=== PATIENT | male | born 1975 | race Caucasian/White ===

== ENCOUNTER 2021-07-01 19:35 | Emergency (ER) | payer SELFPAY ==
[2021-07-01 19:39] VITALS: BP 154/101; PULSE 92; RESP 16; TEMP 36.8; O2SAT 97
--- NOTE | 2021-07-01 20:24 | PC.NURSE ---
Pt to desk w/ . Pt stating he wants to go home at this time. Pt A&Ox4 with steady gait in no acute distress. Pt encouraged to return if his symptoms worsen or new symptoms develop.
== END 2021-07-01 20:47 | disposition left against medical advice (07) ==
LOC: ANHED 20:44
DX: R20.0 Anesthesia of skin (principal)
CPT/HCPCS: 99199

== ENCOUNTER 2024-06-22 15:01 | Inpatient (IN) | payer SELFPAY ==
[2024-06-22] VITALS (10 sets, daily range): BP systolic 119–152; BP diastolic 74–90; PULSE 92–98; RESP 16–25; TEMP 36.8–37.1; O2SAT 94–98; BMI 26.9
--- NOTE | 2024-06-22 15:07 | ECG_ITS ---
Test Date: 2024-06-22 15:07:39 Measurements Intervals [place] Rate: 99 P: 66 HI: 131 QRS: 67 QRSD: 90 T: 59 QT: 371 QTc: 478 Interpretive Statements SINUS RHYTHM DELAYED PRECORDIAL R/S TRANSITION NONSPECIFIC ST & T-WAVE ABNORMALITY- INF/LAT LEADS BASELINE ARTIFACT- I, II, III, AVR, AVL A,VF, V1-V6 BORDERLINE ECG No previous ECG available for comparison Electronically Signed On 06-22-2024 15:55:15 CDT by Salvador Hook D.O.
--- NOTE | 2024-06-22 15:21 | PC.NURSE ---
Ashish RN, at [place] poison control contacted d/t patient's intentional OD at approx 1400. Per the patient, he ingested the following: -Hydroxyzine 50mg x 60 -Trazodone 100mg x 90 -Fluoxetine 40mg x 180 -Diphenhydramine 50mg x 100 She provided the following information: Peak: -Hydroxyzine 1-3 hours -Trazodone 1-2 hours (potentially 8 hours active metabolization) -Fluoxetine 6-8 hours (potentially 48 hours active metabolization) -Diphenhydramine >6-8 hours What to watch for: -TICKET SELLER depression -drowsiness -anticholinergic affects -slow GI motility -dry mouth -N/V -prolonged QT Also suggested to do tox screen and check for possible co-ingestants. Poison control RN provided with patient demographics and full set of VS. RN to fax data sheets over and call back for an update.
[2024-06-22 15:23] LABS: Basophils Absolute Auto 0.1 K/mm3 (0.0-0.1); Basophils Percent Auto 0.3 % (0.2-1.2); Eosinophils Percent Auto 0.1 % (0-4.4); Hematocrit 39.9 % (42.0-52.0); Hemoglobin 13.4 g/dL (14.0-18.0); Immature Granulocyte Absolute 0.12 K/mm3 (0.00-0.031); Immature Granulocyte Percent A 0.7 % (0-0.5); Lymphocytes Absolute Auto 2.11 K/mm3 (0.9-3.2); Lymphocytes Percent Auto 12.2 % (18.3-44.2); Mean Corpuscular HGB Conc 33.6 g/dl (32-36); Mean Corpuscular Hemoglobin 27.9 pg (26-34); Mean Platelet Volume 8.4 fl (7.4-10.4); Monocytes Absolute Auto 1.2 K/mm3 (0.1-0.6); Monocytes Percent Auto 7.1 % (2.6-8.5); Neutrophils Absolute Auto 13.8 K/mm3 (1.3-6.7); Neutrophils Percent Auto 79.6 % (45.5-73.1); Platelet Count Result 350 k/mm3 (150-375); Red Blood Count 4.81 M/mm3 (4.6-6.20); Red Cell Distribution Width 16.3 % (11.5-14.5); White Blood Count 17.3 K/mm3 (4.5-10.0)
--- NOTE | 2024-06-22 15:23 | ED_ITS ---
HPI - Overdose General Chief Complaint: Overdose Stated Complaint: intentional OD Time Seen by Provider: 06/22/24 15:01 History of Present Illness HPI Narrative: 48-year-old male with a past medical history including chronic depression and suicidal ideation. Patient presents to the emergency room today after a overdose of multiple medications. Patient states this was an intentional overdose and tried to harm himself. He states that he feels like it was unsuccessful and wants to kill himself with a gun now. Endorses drinking vodka yesterday and ingested multiple bottles of medications that he stay were mostly full including trazodone, fluoxetine, hydroxyzine and Benadryl. Ingestion occurred approximately 2:00 p.m. based on patient's story. Endorsed 1 episode of small emesis and round with EMS. Patient is somnolent but easily arousable in the bedside. Denies any symptoms at this time aside from feeling sleepy. States that he has had chronic suicidal thoughts but no attempts before. Related Data Home Medications ?Medication ?Instructions ?Recorded ?Confirmed ?Last Taken ?Type fluoxetine 40 mg capsule 40 mg PO QPM 06/22/24 06/22/24 Unknown History hydroxyzine pamoate 50 mg capsule 50 mg PO Q6H PRN agitation 06/22/24 06/22/24 Unknown History lisinopril 10 mg tablet 10 mg PO DAILY 06/22/24 06/22/24 Unknown History quetiapine 100 mg tablet 200 mg PO HS 06/22/24 06/22/24 Unknown History Allergies Allergy/AdvReac Type Severity Reaction Status Date / Time No Known Allergies Allergy Verified 07/01/21 19:43 Review of Systems 2 Review of Systems: Is reviewed above in HPI [facility] Past Medical History Medical History (Updated 06/22/24 @ 21:57 by Gerald Mccauley MD) GERD (gastroesophageal reflux disease) Suicide attempt 06/22/2024 - ingestion of prescription pills and [id number] medication Bipolar disorder HTN (hypertension) Surgical History Surgical History (Updated 06/22/24 @ 20:28 by Katelyn Pratt, RICK) History of ankle surgery Family History Family History (Updated 06/22/24 @ 19:28 by Fabien Sanchez RN) Other Unknown family medical history Social History Social History Smoking packs per day: 1 Smoking cigarettes per day: 20.0 Years smoked: 20 Smoking pack-years: 20.00 Smoking status: Current every day smoker Alcohol intake: current Substance use type: marijuana and prescription drug Spiritual care concerns: No Exam 2 Narrative: GENERAL: Somnolent but easily arousable with verbal and physical stimuli. HEAD: [Normocephalic, atraumatic.] EYES: [PERRLA and EOMI.] ENT: Nares clear, no rhinorrhea or epistaxis. Mucous membranes moist. NECK: Supple. CHEST: [Clear to auscultation. No respiratory distress.] HEART: [Regular rate and rhythm]. No murmur heard. [Normal peripheral pulses.] ABDOMEN: [Soft, nondistended], [nontender], [No rigidity or guarding] EXTREMITIES: Normal range of motion. [No edema.] SKIN: Warm, dry, no rash. NEURO: [No focal deficits]. Alert and oriented [x3.] PSYCH: [Normal mood and affect.] Course Vital Signs Vital signs: Vital Signs Temperature 37.1 C 06/22/24 14:56 Respiratory Rate 20 06/22/24 14:56 Blood Pressure 127/90 06/22/24 14:56 Temperature 36.8 C 06/22/24 20:00 Pulse Rate 98 06/22/24 21:00 Respiratory Rate 25 H 06/22/24 20:00 Blood Pressure 152/90 H 06/22/24 20:00 Pulse Oximetry 98 06/22/24 20:00 Oxygen Delivery Room Air 06/22/24 19:53 MDM - Overdose MDM Narrative Medical decision making narrative: 48-year-old male with a past medical history including depression and previous suicidal thoughts but no at times. Patient presents after an intentional overdose in attempt to commit suicide. States that he ingested multiple pills that were nearly full and presents with EMS at bedside. Patient's medications at bedside appear empty and include hydroxyzine 50 mg time 60 tablets, trazodone 100 mg x 90 tablets, fluoxetine 40 mg x 180 tablets, diphenhydramine 50 mg x 100 tablets. Patient also endorses drinking a pt of vodka yesterday. States his ingestion was 30 minutes prior to arrival so proximally 2:00 p.m.. Patient is somnolent but easily arousable, not any acute distress. Vital signs within normal limits. Normal respiratory efforts. Poison Control was contacted and they recommended prolonged monitoring of the fluoxetine for up to 48 hours with peak metabolism in 8 hours. The trazodone hydroxyzine diphenhydramine can cause profound drowsiness and peak within 1-2 hours. Patient currently is mentating and protecting his airway. Was placed on director call center sales pulse oximetry. Psychiatric workup was ordered including laboratory evaluations, urinalysis and urine drug screen. Alcohol level, salicylate level, Tylenol level ordered. Patient will be re-evaluated frequently and will need to be admitted to the hospital upon completion of workup with a one-to-one sitter likely to the ICU for staffing purposes and observation. Laboratory studies showed leukocytosis of 17.3 but nonspecific, no signs of infection. Hemoglobin 13.4 no baseline. Normal platelet count. Electrolytes within normal limits, mildly elevated anion gap, normal creatinine, normal glucose, normal LFTs. Normal TSH. Urinalysis with no signs of infection. Negative drug screen aside from cannabinoids. Negative Tylenol salicylates and alcohol level. COVID negative. Patient will be admitted to the ICU for at least 24 observation with a one-to-one sitter based on his ingestion. Patient remains hemodynamically stable, easily arousable without any compromise from a respiratory standpoint or a mental status standpoint. Spoke to the hospitalist and the bundle tier over the phone who agreed to accept the patient to the ICU at this time. Medical Records Attestation: I reviewed the patient's medical records. Lab Data Attestation: I reviewed the patient's lab results. 06/22/24 15:17 06/22/24 15:17 Labs: Lab Results 06/22/24 06/22/24 Range/Units 15:17 17:06 WBC 17.3 H (4.5-10.0) K/mm3 RBC 4.81 (4.6-6.20) M/mm3 Hgb 13.4 L (14.0-18.0) g/dL Hct 39.9 L (42.0-52.0) % MCV 83.0 (80-100) fl MCH 27.9 (26-34) pg MCHC 33.6 (32-36) g/dl RDW 16.3 H (11.5-14.5) % Plt Count 350 (150-375) k/mm3 MPV 8.4 (7.4-10.4) fl Immature Gran % (Auto) 0.7 H (0-0.5) % Neut % (Auto) 79.6 H (45.5-73.1) % Lymph % (Auto) 12.2 L (18.3-44.2) % [place] % (Auto) 7.1 (2.6-8.5) % Eos % (Auto) 0.1 (0-4.4) % Baso % (Auto) 0.3 (0.2-1.2) % Lymph # (Auto) 2.11 (0.9-3.2) K/mm3 [place] # (Auto) 1.2 H (0.1-0.6) K/mm3 Eos # (Auto) 0.0 (0-0.3) K/mm3 Baso # (Auto) 0.1 (0.0-0.1) K/mm3 Abs Immat Gran (auto) 0.12 H (0.00-0.031) K/mm3 Absolute Neuts (auto) 13.8 H (1.3-6.7) K/mm3 Absolute Nucleated RBC 0.000 (0.0-0.012) K/mm3 Nucleated RBC % 0.0 (0.0-0.2) % Sodium 138 (137-145) mmol/L Potassium 3.7 (3.4-5.0) mmol/L Chloride 104 (98-107) mmol/L Carbon Dioxide 17 L (22-30) mmol/L Anion Gap 17 H (4-12) mmol/L BUN 16 (9-20) mg/dL Creatinine 0.71 (0.7-1.3) mg/dL Estim Creat Clear Calc 118 ml/min Estimated GFR > 60 (59 - ) Glucose 138 H (65-110) mg/dL Calcium 8.4 (8.4-10.2) mg/dL Total Bilirubin 0.5 (0.2-1.3) mg/dL AST 34 (17-59) U/L ALT 44 (6-50) U/L Alkaline Phosphatase 119 (38-126) U/L Total Creatine Kinase Pending Total Protein 7.0 (6.3-8.2) g/dL Albumin 4.4 (3.5-5.1) g/dL TSH 0.482 (0.465-4.680) uIU/mL Urine Color Yellow (Yellow) Urine Appearance Clear (Clear) Urine pH 6.0 (5.0-9.0) Ur Specific [place] 1.013 (1.001-1.035) Urine Protein Negative (Negative) mg/dL Urine Glucose (UA) Negative (Negative) mg/dL Urine Ketones Negative (Negative) mg/dL Ur Blood (Man) Negative (Negative) Urine Nitrate Negative (Negative) Urine Bilirubin Negative (Negative) Urine Urobilinogen 0.2 (<2.0) mg/dL Leukocyte Esterase Rfl Negative (Negative) OTTO/UL Salicylates < 1.0 L (2-20) mg/dL Urine Opiates Screen Negative (Negative) Urine Methadone Screen Negative (Negative) Acetaminophen < 10 L (10-30) ug/mL Ur Barbiturates Screen Negative (Negative) Ur Phencyclidine Scrn Negative (Negative) Ur Amphetamine Screen Negative (Negative) U Benzodiazepines Scrn Negative (Negative) Urine Cocaine Screen Negative (Negative) U Cannabinoids Screen Positive A (Negative) Ethyl Alcohol < 10 (<10) mg/dL SARS-CoV-2 RNA (RT-PCR) Negative (Negative) Critical Care Time Critical Care Time Critical Care Time: Yes Total Critical Care Time: 35 Discharge Plan Discharge Clinical Impression: Drug overdose, Suicide attempt by multiple drug overdose Intentional overdose Qualifiers: Encounter type: initial encounter Qualified Code(s): T50.902A - Poisoning by unspecified drugs, medicaments and biological substances, intentional self-harm, initial encounter Patient Disposition: Still a Patient Condition: Guarded Prognosis
[2024-06-22 15:34] LABS: Acetaminophen < 10 ug/mL (10-30); Ethanol < 10 mg/dL (<10); Salicylate < 1.0 mg/dL (2-20)
[2024-06-22 15:45] LABS: Albumin Level 4.4 g/dL (3.5-5.1); Alkaline Phosphatase 119 U/L (38-126); Anion Gap 17 mmol/L (4-12); Aspartate Amino Transferase 34 U/L (17-59); Bilirubin,Total 0.5 mg/dL (0.2-1.3); Blood Urea Nitrogen 16 mg/dL (9-20); Calcium 8.4 mg/dL (8.4-10.2); Carbon Dioxide 17 mmol/L (22-30); Chloride 104 mmol/L (98-107); Estimated CRCL calculation 118 ml/min; Estimated Glomerular Filt Rate > 60; Glucose 138 mg/dL (65-110); Potassium 3.7 mmol/L (3.4-5.0); Sodium 138 mmol/L (137-145)
[2024-06-22 15:59] LABS: SARS-CoV-2 RNA PCR Negative (Negative)
[2024-06-22 16:07] LABS: Thyroid Stimulating Hormone 0.482 uIU/mL (0.465-4.680)
[2024-06-22 16:28] LABS: Alanine Aminotransferase 44 U/L (6-50)
[2024-06-22 17:13] LABS: Add Urine Microscopic? NO; Appearance Urine Clear (Clear); Bilirubin Urine Negative (Negative); Blood Urine Negative (Negative); Color Urine Yellow (Yellow); Glucose Urine UA Negative (Negative); Ketones Urine Negative (Negative); Leukocyte Esterase Ur Negative LEU/UL (Negative); Nitrate Urine Negative (Negative); Protein Urine Negative (Negative); Specific Grav Ur 1.013 (1.001-1.035); Urobilinogen Urine 0.2 mg/dL (<2.0)
--- OUTSIDE RECORDS SUMMARY | 2024-06-22 17:29 | XMS_ITS | Clinical Summary ---
Author Organization [facility] Address [address] [place] [id number] Care Team Providers Care Rehabilitation Consultant Name Role Phone Preet Gunter MD Primary Care Provider [phone] Allergies No known active allergies Medications atorvastatin (LIPITOR) 40 mg tablet Take 1 tablet (40 mg total) by mouth daily 30 tablet 11 09/21/2020 Active nicotine (NICODERM CQ) [address] 1 patch on the skin daily 30 patch 09/21/2020 Active chlordiazePOXID E (LIBRIUM) 25 mg capsuleIndicati ons:Alcohol Withdrawal Syndrome Take 1 capsule (25 mg total) by mouth 3 (three) times a day as needed for anxiety for up to 5 days 15 capsule 05/26/2022 Active Active Problems Problem Noted Date Diagnosed Date Chest pain 09/18/2020 Assessment & Plan (09/18/2020 11:16 PM CDT): Associated with activity however alleviated by Ativan. Troponin show in significant delta. EKG shows sinus rhythm with no ST changes. Patient does have risk factors including tobacco use, hypertension in family history. Mother had her 1st heart attack at age 41, father and paternal uncle both from their 1st heart attacks; father at 58 and uncle in his early 60s. Will make patient NPO after midnight in order stress test. Will also check a fasting lipid panel as patient states he had elevated cholesterol when he had his work physical a year ago. Alcohol withdrawal, uncomplicated 09/18/2020 Assessment & Plan (09/18/2020 11:01 PM CDT): Patient has been drinking 9-12 beers per day with occasional fireball shots 5 times a week since his brother in May 2019. He states his last drink was Saturday night. Continue CIWA. Continue multivitamin, folic acid and thiamine. Leukocytosis 09/18/2020 Assessment & Plan (09/18/2020 11:03 PM CDT): No obvious signs of infection. Will continue to monitor. Depression 09/18/2020 Assessment & Plan (09/18/2020 11:02 PM CDT): Patient has been depressed since his brother May 2019. He states he is scheduled for inpatient treatment on Saturday in [place]. He denies any current SI or HI. He states he has thought about it when he is depressed or drinking since his brother and this is why he is seeking inpatient treatment. Syncope 09/18/2020 Assessment & Plan (09/18/2020 11:00 PM CDT): Patient had an episode of syncope while at work a week ago. Patient unsure if his blood sugar was low at the time. Monitor on tele. Tobacco use 09/18/2020 Assessment & Plan (09/18/2020 11:09 PM CDT): Patient smokes half a pack to 1 pack per day and has done so since his 20s. He has a nicotine patch on. Insomnia 05/27/2013 Overview (06/07/2016): Insomnia Bilateral inguinal hernia 04/30/2013 Overview (06/07/2016): Bilateral inguinal hernia Surgical History Surgery Date Site/Laterality Comments OTHER SURGICAL HISTORY repair of palate of mouth as a todddler OTHER SURGICAL HISTORY 2013 repair bilateral inguinal hernia's HERNIA REPAIR 2014 Hernia repair Family History Medical History Relation Name Comments Diabetes Brother Diabetes mellit us; Coronary artery disease Father Homa nary artery disease, premature; Cause of : Coronary artery disease, premature Colon cancer Maternal Grandfather Cancer, colon; Breast cancer Mother Cancer, breast ; Hypertension Mother Hypertension; Breast cancer Mother's Sister Cancer, jasmin ast; Diabetes Other 1 Family history of Diabetes mellitus; Hypertension Other 2 Family history of Hypertension; Relation Name Status Comments Brother Father (Age 58) Maternal Grandfather Mother Mother's Sister Other 1 Other 2 Social History Tobacco Use Types Packs/Day Years Used Date Smoking Tobacco: Every Day Cigarettes 1 Comments:Smoking History Pac ks/day: 1 Packs Alcohol Use Standard Drinks/Week Comments No 0 (1 standard drink = 0.6 oz pur e alcohol) AUDIT-C Answer Date Recorded Q1: How often do you have a drink containing alcohol? 4 or more times a week 09/18/2020 Q2: How many drinks containi ng alcohol do you have on a typical day when you are drinking? 7 to 9 Q3: How often do you have si x or more drinks on one occasion? 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 Gender Identity Not on file Sexual Orientation Not on file Obstetrics History Last Filed Vital Signs Vital Sign Reading Time Taken Comments Blood Pressure 136/86 07/26/2022 7:57 PM CDT Pulse 97 07/26/2022 7:57 PM CDT Temperature 37.1 C (98.7 F) 07/26/2022 7:57 PM CDT Respiratory Rate 18 07/26/2022 7:57 PM CDT Oxygen Saturation 97% 07/26/2022 7:57 PM CDT Inhaled Oxygen Concentration - - Weight 77 kg (169 lb 12.1 oz) 07/26/2022 7:57 PM CDT Height 182.9 cm (6') 05/26/2022 12:47 PM CDT Body Mass Index 23.02 05/26/2022 12:47 PM CDT Plan of Treatment Health Maintenance Due Date Last Done Comments Colon Cancer Screening-Colonoscopy 1973 Hepatitis C Screening 1973 Prostate Cancer Screening-PSA 1973 DTaP/Tdap/Td Vaccine (1 - Tdap) 1984 Hepatitis B Screening 08/06/1991 Regular Well Visit/Exam 18-64 08/06/1991 Pneumococcal vaccine <65 (1 of 2 - PCV) 1992 Depression Screening 09/18/2021 09/18/2020 Zoster Vaccine (1 of 2) 08/06/2023 Influenza Vaccine (Season Ended) 2024 [place] Sub[place] Plan / Payer ( fective 2015-Present) Name:Chacho Maier Relation to Subscriber:Self Name:Chacho Maier Payer ID:[id number] (NAIC) Type:[facility] OTHER Address: [id number] [place] [id number] Advance Directives For more information, please contact: [phone] * Full Code (Latest Code Status on File) Date Activated Date Inactivated Comments 09/18/2020 1:38 PM 09/20/2020 4:09 PM Care Teams Rehabilitation Consultant Relationship Specialty Start Date End Date Preet Gunter MD [address] [place] [address] [place] [address] PCP - General Family Medicine 07/26/22
--- OUTSIDE RECORDS SUMMARY | 2024-06-22 17:29 | XMS_ITS | Clinical Summary ---
Author Organization [facility] Address [address] [address] Phone Care Team Providers Care Elastic Attacher Overlock Name Role Phone Preet Gunter MD Primary Care Provider [phone] Allergies No known active allergies Medications ALPRAZolam (XANAX) 0.5 MG Tablet Take 0.5 mg by mouth. 1 Active atorvastatin (LIPITOR) 40 MG Tablet Take 40 mg by mouth. 1 Active metroNIDAZOLE (FLAGYL) 500 MG Tablet Take 1 Tablet by mouth 3 times daily. 30 Tablet 2 Active traMADol (ULTRAM) 50 MG TabletIndications:A cute diverticulitis Take 1-2 Tablets by mouth every 6 hours as needed for Moderate or more severe pain. 20 Tablet 2 Active Active Problems Problem Noted Date Diagnosed Date Leukemoid reaction 10/16/2021 TMJ tenderness, left 10/16/2021 Family History Medical History Relation Name Comments Alcohol Abuse Brother 1 Depression Brother 1 Diabetes Brother 1 Suicide Attempts Brother 1 Alcohol Abuse Father Diabetes Father Heart Attack Father Hypertension Father Breast Cancer Maternal Aunt Breast Cancer Mother Diabetes Mother Heart Attack Mother Hypertension Mother Diabetes Paternal Grandmother Relation Name Status Comments Brother 1 (Age 48) PTSD/ Suic grace Brother 2 Alive Father Maternal Aunt Mother Paternal Grandmother Social History Tobacco Use Types Packs/Day Years Used Date Smoking Tobacco: Every Day Cigarettes 1 4 Smokeless Tobacco: Never Alcohol Use Standard Drinks/Week Comments Not Currently 0 (1 standard drink = 0.6 oz pur e alcohol) not since september 2020 Sex and Gender Information Value Date Recorded Sex Assigned at Not on file Legal Sex Male 10:29 PM CDT Gender Identity Not on file Sexual Orientation Not on file Last Filed Vital Signs Vital Sign Reading Time Taken Comments Blood Pressure 125/75 11/06/2021 12:51 AM CDT Pulse 85 11/05/2021 8:27 PM CDT Temperature 36.7 C (98 F) 11/05/2021 8:27 PM CDT Respiratory Rate 18 11/05/2021 8:27 PM CDT Oxygen Saturation 98% 11/05/2021 8:27 PM CDT Inhaled Oxygen Concentration - - Weight 81.6 kg (180 lb) 11/05/2021 8:27 PM CDT Height 182.9 cm (6') 11/05/2021 8:27 PM CDT Body Mass Index 24.41 11/05/2021 8:27 PM CDT Plan of Treatment Health Maintenance Due Date Last Done Comments Hepatitis C Virus (HCV) Screening 1973 TdaP Immunization 1973 Hepatitis B Immunization (1 of 3 - 19+ 3-dose series) 1992 Colonoscopy 2018 Colorectal Cancer Screening 11/07/2021 Cologuard 08/06/2023 Immunochemical Fecal Occult Blood 08/06/2023 022 Pneumococcal Immunization (5 0+ years) (1 of 1 - PCV) 08/06/2023 Zoster Immunization (1 of 2) 08/06/2023 Influenza Immunization (#1) 2023 SARS-COV-2 Immunization ( - season) 2023 Respiratory Syncytial Virus (RSV) Immunization (Adult) (1 - 1-dose 75+ series) 2048 Meningococcal Immunization (ACWY) Aged Out No longer eligible based on patient's age to complete this topic Rotavirus Immunization Aged Out No lo nger eligible based on patient's age to complete this topic Procedures Procedure Name Priority Date/Time Associated Diagnosis Comments STOOL, OCCULT BLOOD, DIAGNOSTIC, VIA GUAIAC STAT 11/06/2021 12:03 AM CDT from Last 3 Months or Most Recently Relevant to Health Maintenance Results * Stool Occult Blood - Diagnostic (11/06/2021 12:03 AM CDT) OCCULT BLOOD DIAG, GI BLEED Negative Negative 11/06/2021 12:18 AM CDT [facility] Stool Non-Phlebotomy Collection / Unknown 11/06/2021 12:03 AM CDT 11/06/2021 12:07 AM CDT us Mat Sandoval MD BODY FLUIDS & STOOLS ABDELRAMHAN RUSSELL Final Result [facility] [address] [place] [address] from Last 3 Months or Most Recently Relevant to Health Maintenance Insurance [facility] Care Teams Elastic Attacher Overlock Relationship Specialty Start Date End Date Preet Gunter MD [address] [place] [address] PCP - General Family Medicine 10/16/21
--- OUTSIDE RECORDS SUMMARY | 2024-06-22 17:29 | XMS_ITS | Referral Summary ---
Author Organization [facility] Address [address] [place] [address] Care Team Providers Care Action Installer Name Role Phone Preet Gunter MD Primary Care Provider [phone] Allergies No known active allergies Medications atorvastatin [...] scheduled for inpatient treatment on Saturday in [place]. He denies any current SI or HI. [...] hernia 04/30/2013 Overview (06/07/2016): Bilateral inguinal hernia Social History Tobacco Use Types Packs/Day Years Used Date Smoking Tobacco: Every Day Cigarettes 03 30 Comments:Smoking History Pac ks/day: 1 Packs Alcohol [...] when you are drinking? 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
[2024-06-22 17:35] LABS: Amphetamine Screen Urine Negative (Negative); Barbiturate Screen Urine Negative (Negative); Benzodiazepines Screen Urine Negative (Negative); Cannabinoid Screen Urine Positive (Negative); Cocaine Screen Urine Negative (Negative); Methadone Screen Urine Negative (Negative); Opiate Screen Urine Negative (Negative); Phencyclidine Screen Urine Negative (Negative)
[2024-06-22] MEDS: LACTATED RINGERS 1,000 ML 999 ML IV CONT ×2 (18:23→18:24)
--- NOTE | 2024-06-22 18:52 | PM.IMHP ---
H&P: HPI History of Present Illness Date/Time: 06/22/24 18:52 Chief Complaint: Ingestion/Overdose, Suicide Attempt Narrative: 48 y/o M with PMH of chronic depression, HTN, GERD, and bipolar disorder presents here with overdose. The patient [place] here from a local hotel via EMS for further evaluation after a suicide attempt via ingestion.? The patient reports he took multiple medications in an attempt to harm himself today. He reports taking multiple Trazodone, Fluoxetine, Hydroxyzine, and Benadryl.? He reports he took these medications around 2:00 p.m. Post ingestion he had 1 episode of nausea and vomiting, small in volume, while in route with EMS.? The patient arrived somnolent but easily arousable.? He reports he is still having suicidal ideation, now has plan to utilize a gun.? He reports +/- access to a firearm, reported to the ED provider that he did not have one but that he could get access.? He reports the event was precipitated by his girlfriend's child coming into town. Did not elaborate further. He denies any previous attempts. The patient currently lives with his girlfriend, does not currently work. Reports Arcenio LILLY, pain management, prescribes his medication. Of note, the patient also reported ETOH use last night - 1 pint of Vodka. He reports he has been doing well, however started drinking heavily in February after his brother passed. The patient is currently a poor historian due to level of somnolence and mentation. Initial VS at presentation: 98.7? F, HR 92, RR 20, 127/90, and 95% on RA. ED workup showed: WBC 17.3, hemoglobin 13.4, no significant electrolyte derangements, creatinine 0.71 and GFR >60, glucose 138, UA negative, salicylates and acetaminophen negative, UDS positive for cannabis, ethanol negative. COVID negative. EKG showed sinus rhythm, delayed precordial R/S transition, nonspecific ST and T-wave abnormality inferior/lateral leads. Review of Systems Review of Systems: All systems reviewed & are unremarkable except as noted in HPI and below (Limited, altered) [facility] Past Medical History Medical History (Updated 06/22/24 @ 20:31 by Katelyn Pratt APRN) GERD (gastroesophageal reflux disease) Suicide attempt 06/22/2024 - ingestion of prescription pills and [id number] medication Bipolar disorder HTN (hypertension) Surgical History Surgical History (Updated 06/22/24 @ 20:28 by Katelyn Pratt APRN) History of ankle surgery Family History Family History (Updated 06/22/24 @ 19:28 by Fabien Sanchez RN) Other Unknown family medical history Social History Social History Smoking packs per day: 1 Smoking cigarettes per day: 20.0 Years smoked: 20 Smoking pack-years: 20.00 Smoking status: Current every day smoker Alcohol intake: current Substance use type: marijuana and prescription drug Spiritual care concerns: No Meds Home Medications and Allergies Home Medications ?Medication ?Instructions ?Recorded ?Confirmed ?Type fluoxetine 40 mg capsule 40 mg PO QPM 06/22/24 06/22/24 History hydroxyzine pamoate 50 mg capsule 50 mg PO Q6H PRN agitation 06/22/24 06/22/24 History lisinopril 10 mg tablet 10 mg PO DAILY 06/22/24 06/22/24 History quetiapine 100 mg tablet 200 mg PO HS 06/22/24 06/22/24 History Allergies Allergy/AdvReac Type Severity Reaction Status Date / Time No Known Allergies Allergy Verified 07/01/21 19:43 Vital Signs Vital Signs - 24 hr 06/22/24 14:56 06/22/24 15:17 06/22/24 16:37 Temperature 98.7 F Pulse Rate Respiratory Rate 20 22 H Blood Pressure 127/90 Pulse Oximetry 95 Oxygen Delivery Room Air 06/22/24 16:38 06/22/24 16:42 06/22/24 18:17 Temperature Pulse Rate 92 95 Respiratory Rate 20 16 Blood Pressure 144/84 H 150/84 H Pulse Oximetry 94 95 95 Oxygen Delivery Room Air Exam Const: General: comfortable and no acute distress Other: , male, disheveled, ill-appearing HENMT: Face/Nose/Sinus: Normal nares present Mouth: Yes moist mucous membranes Eyes: General: appearance normal, both eyes and all related structures Sclera: sclerae normal Pupils: Equal, round and reactive pupils present EOM: EOMs intact bilaterally Resp: Effort & Inspection: normal respiratory effort Auscultation: clear to auscultation bilaterally Cardio: Rate: regular rate Rhythm: regular rhythm Other: S1-S2 present without murmur, rub, ectopy GI: Other: Abdomen soft, nondistended, nontender. Normoactive bowel sounds in all quadrants. Skin: General skin exam: normal color and no rashes or lesions noted Wounds: no wounds Other: Skin warm, mildly diaphoretic (primarily in the hands). Neuro: Other: Fine to moderate tremor in the bilateral hands. Appears to be having hallucinations (quick looking to the side, tracking things that are not present). Moving all extremities. Alert and orientated to self and year, unable to provide place or situational history of present. +somnolence. Extrem: General: normal to inspection Psych: Thought content: Yes Suicidality present Other: + suicidal thoughts - reported plan to find gun due to his attempted this morning and being unsuccessful. Appears to be interacting with visual hallucinations (i.e. Looking quickly off to the side and tracking with his eyes objects or people that are not present). Restless when awake, somnolent. Disheveled. H&P: Results Labs Labs: Short CBC 06/22/24 Range/Units 15:17 WBC 17.3 H (4.5-10.0) K/mm3 Hgb 13.4 L (14.0-18.0) g/dL Hct 39.9 L (42.0-52.0) % Plt Count 350 (150-375) k/mm3 BMP 06/22/24 15:17 Sodium 138 Potassium 3.7 Chloride 104 Carbon Dioxide 17 L BUN 16 Creatinine 0.71 Glucose 138 H Calcium 8.4 Liver Function 06/22/24 Range/Units 15:17 Total Bilirubin 0.5 (0.2-1.3) mg/dL AST 34 (17-59) U/L ALT 44 (6-50) U/L Alkaline Phosphatase 119 (38-126) U/L Albumin 4.4 (3.5-5.1) g/dL Urine 06/22/24 Range/Units 17:06 Urine Color Yellow (Yellow) Urine Appearance Clear (Clear) Urine pH 6.0 (5.0-9.0) Ur Specific [place] 1.013 (1.001-1.035) Urine Protein Negative (Negative) mg/dL Urine Glucose (UA) Negative (Negative) mg/dL Assessment and Plan Assessment and plan (1) Intentional overdose: Qualifiers: Encounter type: initial encounter Qualified Code(s): T50.902A - Poisoning by unspecified drugs, medicaments and biological substances, intentional self-harm, initial encounter Code(s): T50.902A - Poisoning by unspecified drugs, medicaments and biological substances, intentional self-harm, initial encounter Status: Acute Assessment and Plan: Intentionally took multiple medications as a suicide attempt including hydroxyzine, trazodone, fluoxetine, and Benadryl around 2:00 p.m. Prescriptions brought to the bedside, see quantities and strengths below. Bottles are empty, however EMS reported there were some pills lying about upon their arrival. Hydroxyzine 50 mg x 60 tablets Trazodone 100 mg x 90 tablets Fluoxetine 40 mg x 180 tablets Benadryl 50 mg x 100 tablets Poison control contacted in the ED: Trazodone, Hydroxyzine, Benadryl can cause profound drowsiness, peak 1-2 hours.? Currently arousable to voice and protecting airway. Prolonged monitoring for fluoxetine (up to 48 hours), peak metabolism at 8 hours (replace peak at 10:00 p.m. this evening). Last ETOH use last night (06/21) Admission to the ICU for staffing with a one-to-one sitter and observation.? Suicide precautions ordered. Will need psych evaluation once medically cleared. Telemetry monitoring. (2) Alcohol use disorder: Code(s): F10.90 - Alcohol use, unspecified, uncomplicated Status: Acute Assessment and Plan: suspected daily ETOH use, 1 pint, since February. Patient difficult historian are present due to level of somnolence. last drink - 06/21, 1 pint of vodka CIWA protocol in place Ativan PRN Librium prn seizure precautions neurochecks Q2H Banana bag Continue thiamine and folic acid daily Reassess history once patient is improved (3) Bipolar disorder: Qualifiers: Active/Remission status: remission status unspecified Qualified Code(s): F31.9 - Bipolar disorder, unspecified Code(s): F31.9 - Bipolar disorder, unspecified Status: Chronic Assessment and Plan: Hold home medications: quetiapine, fluoxetine, hydroxyzine. Will need care coordination/crisis intervention once medically cleared. (4) HTN (hypertension): Qualifiers: Hypertension type: primary hypertension Qualified Code(s): I10 - Essential (primary) hypertension Code(s): I10 - Essential (primary) hypertension Status: Chronic Assessment and Plan: Chronic, currently 152/90. Continue home medication: Lisinopril 10 mg daily. Monitor. Plan Diet:? Regular GI Prophylaxis: ?Not currently indicated DVT Prophylaxis: ?Lovenox SQ Lines: ?Peripheral Code Status:? Full code Quality VTE Prophylaxis VTE prophylaxis: pharmacologic ordered Critical Care Time: I personally spent 35 minutes of direct patient care including (but not limited to) the physical examination, decision-making, bedside evaluation, review of medical records, review of labs and imaging, discussion with nursing staff and other providers for collaborative, critical care management of this patient. Hospitalist MIPS Advance Care Plan I have confirmed that the patient's Advanced Care Plan is present, code status is documented, or surrogate decision maker is listed in patient medical record.: Yes Medication Reconciliation I have utilized all available resources to obtain, update and review the patients current medications (includes all prescriptions, OTC, herbals, cannabis, and nutritional supplements).: Yes
--- NOTE | 2024-06-22 19:00 | ADMGEN ---
This patient, Chacho Maier, was admitted to Intensive Care Unit-4. Patient/family oriented to hospital policies and general routines including ID bracelet, bed and alarms, visiting hours, pain management, procedures, bathroom and other care routines, personal items, smoking policy, room service/diet, and visiting hours. Information on how to activate the Rapid Response Team has been discussed. Patient/Family are encouraged to report perceived risks to care and to ask questions if they do not understand what they are told or what they should do.
[2024-06-22] MEDS: chlordiazePOXIDE (*CRX) 25 MG CAPSULE PO (20:53)
[2024-06-22] MEDS: LORazepam INJ (*CRX) 2 MG/ML VIAL 1 MG IV PUSH (20:53)
[2024-06-22] MEDS: THIAMINE HCL INJ 100 MG, FOLIC ACID INJ 1 MG, MAGNESIUM SULFATE INJ 1 GM, MULTIVITAMINS... 125 MG IV CONT (21:24)
[2024-06-23] VITALS (14 sets, daily range): BP systolic 117–165; BP diastolic 69–102; PULSE 63–101; RESP 20–25; TEMP 36.7–37.1; O2SAT 90–95
[2024-06-23 02:10] LABS: Creatine Kinase 134 U/L (55-170)
[2024-06-23] MEDS: LORazepam INJ (*CRX) 2 MG/ML VIAL IV PUSH ×2 (03:52→20:22)
[2024-06-23 04:19] LABS: Basophils Absolute Auto 0.1 K/mm3 (0.0-0.1); Basophils Percent Auto 0.3 % (0.2-1.2); Eosinophils Percent Auto 0.1 % (0-4.4); Hematocrit 39.5 % (42.0-52.0); Hemoglobin 13.1 g/dL (14.0-18.0); Immature Granulocyte Absolute 0.09 K/mm3 (0.00-0.031); Immature Granulocyte Percent A 0.5 % (0-0.5); Lymphocytes Absolute Auto 3.44 K/mm3 (0.9-3.2); Lymphocytes Percent Auto 19.2 % (18.3-44.2); Mean Corpuscular HGB Conc 33.2 g/dl (32-36); Mean Corpuscular Hemoglobin 27.4 pg (26-34); Mean Corpuscular Volume 82.6 fl (80-100); Mean Platelet Volume 8.8 fl (7.4-10.4); Monocytes Absolute Auto 1.5 K/mm3 (0.1-0.6); Monocytes Percent Auto 8.6 % (2.6-8.5); Neutrophils Absolute Auto 12.8 K/mm3 (1.3-6.7); Neutrophils Percent Auto 71.3 % (45.5-73.1); Platelet Count Result 347 k/mm3 (150-375); Red Blood Count 4.78 M/mm3 (4.6-6.20); Red Cell Distribution Width 16.5 % (11.5-14.5); White Blood Count 17.9 K/mm3 (4.5-10.0)
[2024-06-23 04:25] LABS: Anion Gap 12 mmol/L (4-12); Blood Urea Nitrogen 9 mg/dL (9-20); Calcium 8.3 mg/dL (8.4-10.2); Carbon Dioxide 21 mmol/L (22-30); Chloride 106 mmol/L (98-107); Estimated CRCL calculation 113 ml/min; Estimated Glomerular Filt Rate > 60; Glucose 115 mg/dL (65-110); Potassium 3.5 mmol/L (3.4-5.0); Sodium 139 mmol/L (137-145)
[2024-06-23] MEDS: LACTATED RINGERS 1,000 ML 999 ML IV CONT (07:54)
[2024-06-23] MEDS: ENOXAPARIN 40 MG/0.4 ML SYRINGE SUB-Q (07:55)
[2024-06-23] MEDS: FOLIC ACID 1 MG TABLET PO (07:55)
[2024-06-23] MEDS: chlordiazePOXIDE (*CRX) 25 MG CAPSULE PO (07:55)
[2024-06-23] MEDS: lisinopriL 10 MG TABLET PO (07:55)
[2024-06-23] MEDS: THIAMINE HCL 200 MG/2 ML VIAL 100 MG IV PUSH (07:55)
[2024-06-23] MEDS: ACETAMINOPHEN 500 MG TABLET PO (08:05)
--- NOTE | 2024-06-23 09:18 | WPDCNINT ---
Assessment and Plan Assessment and plan (1) Intentional overdose: Qualifiers: Encounter type: initial encounter Qualified Code(s): T50.902A - Poisoning by unspecified drugs, medicaments and biological substances, intentional self-harm, initial encounter <Olesya Davis Student - Last Filed: 06/23/24 09:47> Code(s): T50.902A - Poisoning by unspecified drugs, medicaments and biological substances, intentional self-harm, initial encounter <Olesya Davis Student - Last Filed: 06/23/24 09:47> Status: Acute <Olesya Davis Student - Last Filed: 06/23/24 09:47> Assessment and Plan: 06/23- Pt seen and evaluated in the ICU s/p intentional overdose of Fluoxetine, Trazodone, Hydroxyzine, and Benadryl. Pt states he has been depressed since the passing of multiple family members and wanted to end his life since he is alone. EMS found pt with empty medication bottles including hydroxyzine 50 mg x 60 tablets, trazodone 100 mg x 90 tablets, fluoxetine 40 mg x 180 tablets, diphenhydramine 50 mg x 100 tablets. Blood work in the ED showed leukocytosis of 17.3, hemoglobin of 13.4, Anion Gap of 17, glucose of 138, CK of 134, and TSH of 0.482. Toxicology was only positive for cannabinoids. Poison control was contacted and they recommended prolonged monitoring of the fluoxetine for up to 48 hours with peak metabolism in 8 hours. The trazodone, hydroxyzine, and diphenhydramine can cause profound drowsiness and peak within 1-2 hours. -Will continue observation and one-to-one sitter. Suicide precautions ordered -Will consult psych once medically cleared -Pt is easily arousable and protecting his airway <Olesya Davis Student - Last Filed: 06/23/24 09:47> 06/23- Pt seen and evaluated in the ICU s/p intentional overdose of Fluoxetine, Trazodone, Hydroxyzine, and Benadryl. Pt states he has been depressed since the passing of multiple family members and wanted to end his life since he is alone. EMS found pt with empty medication bottles including hydroxyzine 50 mg x 60 tablets, trazodone 100 mg x 90 tablets, fluoxetine 40 mg x 180 tablets, diphenhydramine 50 mg x 100 tablets. Blood work in the ED showed leukocytosis of 17.3, hemoglobin of 13.4, Anion Gap of 17, glucose of 138, CK of 134, and TSH of 0.482. Toxicology was only positive for cannabinoids. Poison control was contacted and they recommended prolonged monitoring of the fluoxetine for up to 48 hours with peak metabolism in 8 hours. The trazodone, hydroxyzine, and diphenhydramine can cause profound drowsiness and peak within 1-2 hours. Given 2 L IV fluids in the ER - Will give additional 1 L IV fluid bolus this am -Will continue observation and one-to-one sitter. Suicide precautions ordered -care coordination and crisis management will be consulted once patient is medically stable -Pt is easily arousable and protecting his airway <Lucien Poe MD - Last Filed: 06/23/24 12:13> (2) Suicidal behavior: Code(s): R45.89 - Other symptoms and signs involving emotional state <Franklin Lauren - Last Filed: 06/23/24 09:47> Status: Acute <Franklin Lauren - Last Filed: 06/23/24 09:47> Assessment and Plan: See above. <Franklin Lauren - Last Filed: 06/23/24 09:47> Continue bedside sitter -safety food tray <Lucien Poe MD - Last Filed: 06/23/24 12:13> (3) HTN (hypertension): Qualifiers: Hypertension type: primary hypertension Qualified Code(s): I10 - Essential (primary) hypertension <Franklin Lauren - Last Filed: 06/23/24 09:47> Code(s): I10 - Essential (primary) hypertension <Franklin Lauren - Last Filed: 06/23/24 09:47> Status: Chronic <Franklin Lauren - Last Filed: 06/23/24 09:47> Assessment and Plan: Continue lisinopril -, p.r.n. hydralazine <Lucien Poe MD - Last Filed: 06/23/24 12:13> (4) Bipolar disorder: Qualifiers: Active/Remission status: remission status unspecified Qualified Code(s): F31.9 - Bipolar disorder, unspecified <Olesya Cleaningria, Student - Last Filed: 06/23/24 09:47> Code(s): F31.9 - Bipolar disorder, unspecified <Olesya Cleaningria, Student - Last Filed: 06/23/24 09:47> Status: Chronic <Olesya Duane Davis, Student - Last Filed: 06/23/24 09:47> Assessment and Plan: Patient on fluoxetine and quetiapine at home, continue to hold due to medication overdose <Lucien Poe MD - Last Filed: 06/23/24 12:13> Assessment and Plan: DVT prophylaxis: Not indicated Stress ulcer prophylaxis: Not indicated Nutrition: Normal diet Code Status: Full code Critical Care Time Spent: 40 minutes Due to a high probability of clinically significant, life threatening deterioration, the patient required my highest level of preparedness to intervene emergently and I personally spent this critical care time directly and personally managing the patient. This critical care time included obtaining a history; examining the patient; pulse oximetry; ordering and review of studies; arranging urgent treatment with development of a management plan; evaluation of patient's response to treatment; frequent reassessment; and discussions with other providers. It was exclusive of separately billable procedures and treating other patients and teaching time. Please see Assessment and Plan section and the rest of the note for further information on patient assessment and treatment This dictation may have been done utilizing a voice recognition system. Attempts have been made to correct errors. However, there may be uncorrected grammatical, spelling, and recognitions errors present. <Olesya FreireGeovanna Davis, Student - Last Filed: 06/23/24 09:47> DVT prophylaxis: lovenox Stress ulcer prophylaxis: Not indicated Nutrition: soft and bite sized Code Status: Full code Critical Care Time Spent: 49 minutes Due to a high probability of clinically significant, life threatening deterioration, the patient required my highest level of preparedness to intervene emergently and I personally spent this critical care time directly and personally managing the patient. This critical care time included obtaining a history; examining the patient; pulse oximetry; ordering and review of studies; arranging urgent treatment with development of a management plan; evaluation of patient's response to treatment; frequent reassessment; and discussions with other providers. It was exclusive of separately billable procedures and treating other patients and teaching time. Please see Assessment and Plan section and the rest of the note for further information on patient assessment and treatment This dictation may have been done utilizing a voice recognition system. Attempts have been made to correct errors. However, there may be uncorrected grammatical, spelling, and recognitions errors present. <Lucien Poe MD - Last Filed: 06/23/24 12:13> Office Services Clerk Consult Note Consult date: 06/23/24 <Olesya Davis, Student - Last Filed: 06/23/24 09:47> 06/23/24 <Lucien Poe MD - Last Filed: 06/23/24 12:13> HPI: Chacho Maier is a 48 year old male w/ PMHx of depression presents for intentional overdose. Pt reports that he has lost multiple family members recently and has felt very depressed. Pt states I don't have anyone. He denies any recent inciting events but states that he ingested Fluoxetine, Trazodone, Hydroxyzine, and Benadryl in an attempt to end his life. He denies history of suicide attempts but states he has been very upset since most of his family has recently. Pt reports nausea and vomiting shortly after ingesting the medication, but does not know if emesis contained any pills. He denies chest pain, SOB, fever, abdominal pain, and diarrhea. Pt denies current suicidal ideation. He has a long history of smoking 1ppd and use of THC pen . He denies alcohol or recreational drug use. Per ED note, pt was found by EMS with empty medication bottles including hydroxyzine 50 mg x 60 tablets, trazodone 100 mg x 90 tablets, fluoxetine 40 mg x 180 tablets, diphenhydramine 50 mg x 100 tablets. Blood work showed leukocytosis of 17.3, hemoglobin of 13.4, Anion Gap of 17, glucose of 138, CK of 134, and TSH of 0.482. Toxicology was only positive for cannabinoids. Poison control was contacted and they recommended prolonged monitoring of the fluoxetine for up to 48 hours with peak metabolism in 8 hours. The trazodone, hydroxyzine, and diphenhydramine can cause profound drowsiness and peak within 1-2 hours. Pt was admitted to the ICU for close monitoring. <Olesya Davis Student - Last Filed: 06/23/24 09:47> Review of Systems Review of Systems: All systems reviewed & are unremarkable except as noted in HPI and below <Olesya Davis, Student - Last Filed: 06/23/24 09:47> FOR[facility]LY [facility] Past Medical History Medical History: Medical History (Updated 06/23/24 @ 09:36 by Olesya Davis, Student) GERD (gastroesophageal reflux disease) Suicide attempt 06/22/2024 - ingestion of prescription pills and [id number] medication Bipolar disorder HTN (hypertension) <Olesya Davis Student - Last Filed: 06/23/24 09:47> Surgical History Surgical History: Surgical History (Updated 06/22/24 @ 20:28 by Katelyn Pratt APRN) History of ankle surgery <Olesya Davis Student - Last Filed: 06/23/24 09:47> Family History Family History: Family History (Updated 06/22/24 @ 19:28 by Fabien Sanchez RN) Other Unknown family medical history <Olesya Davis, Student - Last Filed: 06/23/24 09:47> Social History Social History: Social History Smoking packs per day: 1 Smoking cigarettes per day: 20.0 Years smoked: 20 Smoking pack-years: 20.00 Smoking status: Current every day smoker Alcohol intake: current Substance use type: marijuana and prescription drug Spiritual care concerns: No <Olesya Davis, - Last Filed: 06/23/24 09:47> Meds Home Medications and Allergies Home medications: Home Medications ?Medication ?Instructions ?Recorded ?Confirmed ?Type fluoxetine 40 mg capsule 40 mg PO QPM 06/22/24 06/22/24 History hydroxyzine pamoate 50 mg capsule 50 mg PO Q6H PRN agitation 06/22/24 06/22/24 History lisinopril 10 mg tablet 10 mg PO DAILY 06/22/24 06/22/24 History quetiapine 100 mg tablet 200 mg PO HS 06/22/24 06/22/24 History <Olesya Zepeda Susan, Student - Last Filed: 06/23/24 09:47> Allergies/Adverse reactions: Allergies Allergy/AdvReac Type Severity Reaction Status Date / Time No Known Allergies Allergy Verified 07/01/21 19:43 <Olesya Zepeda Susan, Student - Last Filed: 06/23/24 09:47> Vital Signs Vital Signs - 24 hr 06/22/24 14:56 06/22/24 15:17 06/22/24 16:37 Temperature 98.7 F Pulse Rate Pulse Rate [Palpation] Respiratory Rate 20 22 H Blood Pressure 127/90 Pulse Oximetry 95 Oxygen Delivery Room Air 06/22/24 16:38 06/22/24 16:42 06/22/24 18:17 Temperature Pulse Rate 92 95 Pulse Rate [Palpation] Respiratory Rate 20 16 Blood Pressure 144/84 H 150/84 H Pulse Oximetry 94 95 95 Oxygen Delivery Room Air 06/22/24 19:53 06/22/24 20:00 06/22/24 20:00 Temperature 98.3 F Pulse Rate 95 95 95 Pulse Rate [Palpation] Respiratory Rate 16 25 H Blood Pressure 152/90 H Pulse Oximetry 95 98 Oxygen Delivery Room Air 06/22/24 21:00 06/22/24 22:00 06/22/24 22:00 Temperature Pulse Rate 95 93 Pulse Rate [Palpation] 98 Respiratory Rate 25 H Blood Pressure 119/74 Pulse Oximetry 95 Oxygen Delivery 06/23/24 00:00 06/23/24 00:00 06/23/24 00:00 Temperature Pulse Rate 93 93 Pulse Rate [Palpation] 98 Respiratory Rate 25 H Blood Pressure 119/74 Pulse Oximetry 95 Oxygen Delivery Room Air 06/23/24 00:00 06/23/24 02:00 06/23/24 02:00 Temperature 98.4 F Pulse Rate 93 93 96 Pulse Rate [Palpation] Respiratory Rate 25 H 22 H Blood Pressure 119/74 157/97 H Pulse Oximetry 95 95 Oxygen Delivery 06/23/24 03:53 06/23/24 03:55 06/23/24 03:57 Temperature Pulse Rate 96 96 Pulse Rate [Palpation] 98 Respiratory Rate 25 H Blood Pressure 149/93 H Pulse Oximetry 94 Oxygen Delivery Room Air 06/23/24 04:00 06/23/24 05:12 06/23/24 06:00 Temperature 98.3 F 98.1 F Pulse Rate 96 91 96 Pulse Rate [Palpation] Respiratory Rate 20 20 Blood Pressure 117/69 157/90 H Pulse Oximetry 93 95 Oxygen Delivery 06/23/24 08:00 06/23/24 08:04 Temperature 98.6 F Pulse Rate 101 H Pulse Rate [Palpation] Respiratory Rate 22 H Blood Pressure 165/98 H Pulse Oximetry 95 94 Oxygen Delivery Room Air <Olesya Davis, Student - Last Filed: 06/23/24 09:47> Exam Narrative: General: Patient is pleasant, not in acute distress. Easily arousable HEENT:? Pupils equal reactive, sclera is clear Neck:? Supple Respiratory:? Clear to auscultation bilaterally, no wheeze, adequate air entry Cardiac:? S1-S2 is normal, regular rate and rhythm Abdomen:? Soft, nontender, nondistended, normoactive bowel sound Extremities:?No lower extremity edema Neuro:? Patient is awake, alert oriented, nonfocal, answers to questions appropriately and follows simple commands Skin:? No skin lesions noted Psych:? Anxious <Olesya Davis, Student - Last Filed: 06/23/24 09:47> Results Labs CBC & Chem 7: 06/23/24 03:41 06/23/24 03:41 <Olesya Davis, Student - Last Filed: 06/23/24 09:47> Labs: Short CBC 06/22/24 06/23/24 Range/Units 15:17 03:41 WBC 17.3 H 17.9 H (4.5-10.0) K/mm3 Hgb 13.4 L 13.1 L (14.0-18.0) g/dL Hct 39.9 L 39.5 L (42.0-52.0) % Plt Count 350 347 (150-375) k/mm3 BMP 06/22/24 06/23/24 15:17 03:41 Sodium 138 139 Potassium 3.7 3.5 Chloride 104 106 Carbon Dioxide 17 L 21 L BUN 16 9 D Creatinine 0.71 0.74 Glucose 138 H 115 H Calcium 8.4 8.3 L Cardiac Enzymes 06/22/24 Range/Units 15:17 Total Creatine Kinase 134 (55-170) U/L Liver Function 06/22/24 Range/Units 15:17 Total Bilirubin 0.5 (0.2-1.3) mg/dL AST 34 (17-59) U/L ALT 44 (6-50) U/L Alkaline Phosphatase 119 (38-126) U/L Albumin 4.4 (3.5-5.1) g/dL Urine 06/22/24 Range/Units 17:06 Urine Color Yellow (Yellow) Urine Appearance Clear (Clear) Urine pH 6.0 (5.0-9.0) Ur Specific [place] 1.013 (1.001-1.035) Urine Protein Negative (Negative) mg/dL Urine Glucose (UA) Negative (Negative) mg/dL <Olesya Davis, [place] - Last Filed: 06/23/24 09:47> Quality VTE Prophylaxis VTE prophylaxis: pharmacologic ordered <Lucien Poe MD - Last Filed: 06/23/24 12:13> Hospitalist MIPS Advance Care Plan I have confirmed that the patient's Advanced Care Plan is present, code status is documented, or surrogate decision maker is listed in patient medical record.: Yes <Lucien Poe MD - Last Filed: 06/23/24 12:13> Medication Reconciliation I have utilized all available resources to obtain, update and review the patients current medications (includes all prescriptions, OTC, herbals, cannabis, and nutritional supplements).: Yes <Lucien Poe MD - Last Filed: 06/23/24 12:13>
[2024-06-23 11:15] LABS: Glucose Point of Care 118 mg/dl (65-105)
--- NOTE | 2024-06-23 11:34 | PCFNICU ---
ICU Rounding Note: Pt current nutrition is Clear Liquids. Last recorded weight is 90 kg. Bowel Motility: No BM reported. Labs Reviewed: Glu 115, Hct 39.5, Hgb 13.1 Meds Noted: Lovenox, Folic Acid, Thiamine, Librium Skin: WNL Additional Notes: Patient current with Clear liquids, 10% reported at breakfast. Diet supplements on trays of Ensure Clear for additional 240 kcal and 8 gm protein. Agree with diet orders. Following daily in ICU rounds.
[2024-06-23] MEDS: chlordiazePOXIDE (*CRX) 25 MG CAPSULE 50 MG PO ×2 (13:43→20:19)
--- NOTE | 2024-06-23 17:31 | PM.IMPN ---
Progress Note: A&P Assessment and Plan (1) Intentional overdose: Qualifiers: Encounter type: initial encounter Qualified Code(s): T50.902A - Poisoning by unspecified drugs, medicaments and biological substances, intentional self-harm, initial encounter Code(s): T50.902A - Poisoning by unspecified drugs, medicaments and biological substances, intentional self-harm, initial encounter Status: Acute Assessment and Plan: Intentionally took multiple medications as a suicide attempt including hydroxyzine, trazodone, fluoxetine, and Benadryl around 2:00 p.m. Prescriptions brought to the bedside, see quantities and strengths below. Bottles are empty, however EMS reported there were some pills lying about upon their arrival. Hydroxyzine 50 mg x 60 tablets Trazodone 100 mg x 90 tablets Fluoxetine 40 mg x 180 tablets Benadryl 50 mg x 100 tablets Poison control contacted in the ED: Trazodone, Hydroxyzine, Benadryl can cause profound drowsiness, peak 1-2 hours.? Currently arousable to voice and protecting airway. Prolonged monitoring for fluoxetine (up to 48 hours), peak metabolism at 8 hours (replace peak at 10:00 p.m. this evening). Last ETOH use last night (06/21) Admission to the ICU for staffing with a one-to-one sitter and observation.? Suicide precautions ordered. Will need psych evaluation once medically cleared. Telemetry monitoring. (2) Alcohol use disorder: Code(s): F10.90 - Alcohol use, unspecified, uncomplicated Status: Acute Assessment and Plan: suspected daily ETOH use, 1 pint, since February. Patient difficult historian are present due to level of somnolence. last drink - 06/21, 1 pint of vodka CIWA protocol in place Ativan PRN Librium prn seizure precautions neurochecks Q2H Banana bag Continue thiamine and folic acid daily Reassess history once patient is improved (3) Bipolar disorder: Qualifiers: Active/Remission status: remission status unspecified Qualified Code(s): F31.9 - Bipolar disorder, unspecified Code(s): F31.9 - Bipolar disorder, unspecified Status: Chronic Assessment and Plan: Hold home medications: quetiapine, fluoxetine, hydroxyzine. Will need care coordination/crisis intervention once medically cleared. (4) HTN (hypertension): Qualifiers: Hypertension type: primary hypertension Qualified Code(s): I10 - Essential (primary) hypertension Code(s): I10 - Essential (primary) hypertension Status: Chronic Assessment and Plan: Chronic, currently 152/90. Continue home medication: Lisinopril 10 mg daily. Monitor. Subjective Date/time seen: 06/23/24 17:31 Interval history: Patient is anxious. Patient was previously admitted in ICU due to overdose of fluoxetine, trazodone, hydroxyzine and Benadryl. Review of Systems Review of Systems: All systems reviewed & are unremarkable except as noted in HPI and below (Limited, altered) Exam Const: General: comfortable and no acute distress Other: , male, disheveled, ill-appearing HENMT: Face/Nose/Sinus: Normal nares present Mouth: Yes moist mucous membranes Eyes: General: appearance normal, both eyes and all related structures Sclera: sclerae normal Pupils: Equal, round and reactive pupils present EOM: EOMs intact bilaterally Resp: Effort & Inspection: normal respiratory effort Auscultation: clear to auscultation bilaterally Cardio: Rate: regular rate Rhythm: regular rhythm Other: S1-S2 present without murmur, rub, ectopy GI: Other: Abdomen soft, nondistended, nontender. Normoactive bowel sounds in all quadrants. Skin: General skin exam: normal color and no rashes or lesions noted Wounds: no wounds Other: Skin warm, mildly diaphoretic (primarily in the hands). Neuro: Cranial nerves: Yes Equal, round and reactive pupils present Other: Fine to moderate tremor in the bilateral hands. Appears to be having hallucinations (quick looking to the side, tracking things that are not present). Moving all extremities. Alert and orientated to self and year, unable to provide place or situational history of present. +somnolence. Extrem: General: normal to inspection Psych: Other: + suicidal thoughts - reported plan to find gun due to his attempted this morning and being unsuccessful. Appears to be interacting with visual hallucinations (i.e. Looking quickly off to the side and tracking with his eyes objects or people that are not present). Restless when awake, somnolent. Disheveled. Objective Data Vital Signs Vital Signs: Vital Signs - 24 hr 06/22/24 18:17 06/22/24 19:53 06/22/24 20:00 Temperature Pulse Rate 95 95 95 Pulse Rate [Palpation] Respiratory Rate 16 16 Blood Pressure 150/84 H Pulse Oximetry 95 95 Oxygen Delivery Room Air 06/22/24 20:00 06/22/24 21:00 06/22/24 22:00 Temperature 98.3 F Pulse Rate 95 95 Pulse Rate [Palpation] 98 Respiratory Rate 25 H Blood Pressure 152/90 H Pulse Oximetry 98 Oxygen Delivery 06/22/24 22:00 06/23/24 00:00 06/23/24 00:00 Temperature Pulse Rate 93 93 Pulse Rate [Palpation] 98 Respiratory Rate 25 H 25 H Blood Pressure 119/74 119/74 Pulse Oximetry 95 95 Oxygen Delivery Room Air 06/23/24 00:00 06/23/24 00:00 06/23/24 02:00 Temperature 98.4 F Pulse Rate 93 93 93 Pulse Rate [Palpation] Respiratory Rate 25 H Blood Pressure 119/74 Pulse Oximetry 95 Oxygen Delivery 06/23/24 02:00 06/23/24 03:53 06/23/24 03:55 Temperature Pulse Rate 96 96 Pulse Rate [Palpation] 98 Respiratory Rate 22 H 25 H Blood Pressure 157/97 H 149/93 H Pulse Oximetry 95 94 Oxygen Delivery Room Air 06/23/24 03:57 06/23/24 04:00 06/23/24 05:12 Temperature 98.3 F Pulse Rate 96 96 91 Pulse Rate [Palpation] Respiratory Rate 20 Blood Pressure 117/69 Pulse Oximetry 93 Oxygen Delivery 06/23/24 06:00 06/23/24 08:00 06/23/24 08:00 Temperature 98.1 F 98.6 F Pulse Rate 96 101 H Pulse Rate [Palpation] 97 Respiratory Rate 20 22 H Blood Pressure 157/90 H 165/98 H Pulse Oximetry 95 95 Oxygen Delivery 06/23/24 08:00 06/23/24 08:00 06/23/24 08:04 Temperature Pulse Rate 96 Pulse Rate [Palpation] Respiratory Rate Blood Pressure Pulse Oximetry 94 Oxygen Delivery Room Air Room Air 06/23/24 10:00 06/23/24 10:00 06/23/24 15:53 Temperature 98.7 F 98.1 F Pulse Rate 90 90 63 Pulse Rate [Palpation] Respiratory Rate 25 H 24 H Blood Pressure 130/102 H 149/84 H Pulse Oximetry 90 Oxygen Delivery Intake/Output Intake/Output: Intake & Output 06/20/24 06/21/24 06/22/24 06/23/24 23:59 23:59 23:59 23:59 Intake Total 1290 Output Total 205 Balance -760 Meds/Results Medications: Active Medications Generic Name Dose Route Start Last Admin Trade Name Freq PRN Reason Stop Dose Admin Acetaminophen 500 mg 06/22/24 19:25 06/23/24 08:05 Acetaminophen 500 Mg Tablet PO 500 mg Q6H PRN Administration Mild Pain (1-3) or Fever Chlordiazepoxide HCl 50 mg 06/23/24 14:00 06/23/24 13:43 Chlordiazepoxide (*Crx) 25 Mg Capsule PO 50 mg Q6H DANIELA Administration Docusate Sodium 100 mg 06/22/24 19:25 Docusate Sodium 100 Mg Capsule PO Q12H PRN Constipation Enoxaparin Sodium 40 mg 06/23/24 09:00 06/23/24 07:55 Enoxaparin 40 Mg/0.4 Ml Syringe SUB-Q 40 mg DAILY DANIELA Administration Folic Acid 1 mg 06/23/24 09:00 06/23/24 07:55 Folic Acid 1 Mg Tablet PO 1 mg DAILY DANIELA Administration Hydralazine HCl 10 mg 06/23/24 10:11 Hydralazine Hcl 20 Mg/Ml Vial IV PUSH Q4H PRN Blood Pressure - High Lisinopril 10 mg 06/23/24 09:00 06/23/24 07:55 Lisinopril 10 Mg Tablet PO 10 mg DAILY DANIELA Administration Lorazepam 2 mg 06/22/24 20:20 06/23/24 03:52 Lorazepam Inj (*Crx) 2 Mg/Ml Vial IV PUSH 2 mg Q4H PRN Administration CIWA 8-15 Thiamine HCl 100 mg 06/23/24 09:00 06/23/24 07:55 Thiamine Hcl 200 Mg/2 Ml Vial IV PUSH 100 mg DAILY DANIELA Administration Labs Labs: Laboratory Results - last 24 hr 06/22/24 06/22/24 06/23/24 15:17 17:06 03:41 WBC 17.9 H RBC 4.78 Hgb 13.1 L Hct 39.5 L MCV 82.6 MCH 27.4 MCHC 33.2 RDW 16.5 H Plt Count 347 MPV 8.8 Immature Gran % (Auto) 0.5 Neut % (Auto) 71.3 Lymph % (Auto) 19.2 [place] % (Auto) 8.6 H Eos % (Auto) 0.1 Baso % (Auto) 0.3 Lymph # (Auto) 3.44 H [place] # (Auto) 1.5 H Eos # (Auto) 0.0 Baso # (Auto) 0.1 Abs Immat Gran (auto) 0.09 H Absolute Neuts (auto) 12.8 H Absolute Nucleated RBC 0.000 Nucleated RBC % 0.0 Sodium 139 Potassium 3.5 Chloride 106 Carbon Dioxide 21 L Anion Gap 12 BUN 9 D Creatinine 0.74 Estim Creat Clear Calc 113 Estimated GFR > 60 Glucose 115 H POC Capillary Glucose Calcium 8.3 L Total Creatine Kinase 134 Urine Opiates Screen Negative Urine Methadone Screen Negative Ur Barbiturates Screen Negative Ur Phencyclidine Scrn Negative Ur Amphetamine Screen Negative U Benzodiazepines Scrn Negative Urine Cocaine Screen Negative U Cannabinoids Screen Positive A 06/23/24 11:11 WBC RBC Hgb Hct MCV MCH MCHC RDW Plt Count MPV Immature Gran % (Auto) Neut % (Auto) Lymph % (Auto) [place] % (Auto) Eos % (Auto) Baso % (Auto) Lymph # (Auto) [place] # (Auto) Eos # (Auto) Baso # (Auto) Abs Immat Gran (auto) Absolute Neuts (auto) Absolute Nucleated RBC Nucleated RBC % Sodium Potassium Chloride Carbon Dioxide Anion Gap BUN Creatinine Estim Creat Clear Calc Estimated GFR Glucose POC Capillary Glucose 118 H Calcium Total Creatine Kinase Urine Opiates Screen Urine Methadone Screen Ur Barbiturates Screen Ur Phencyclidine Scrn Ur Amphetamine Screen U Benzodiazepines Scrn Urine Cocaine Screen U Cannabinoids Screen Quality VTE Prophylaxis VTE prophylaxis: pharmacologic ordered Hospitalist [facility] Advance Care Plan I have confirmed that the patient's Advanced Care Plan is present, code status is documented, or surrogate decision maker is listed in patient medical record.: Yes Medication Reconciliation I have utilized all available resources to obtain, update and review the patients current medications (includes all prescriptions, OTC, herbals, cannabis, and nutritional supplements).: Yes
[2024-06-23 18:01] LABS: Glucose Point of Care 139 mg/dl (65-105)
--- NOTE | 2024-06-23 21:00 | PC.NURSE ---
2100: Update given to poison control OTP.
[2024-06-24] VITALS: BP 112/83; PULSE 84; RESP 16; TEMP 36.7; O2SAT 97
[2024-06-24] MEDS: LORazepam INJ (*CRX) 2 MG/ML VIAL IV PUSH ×4 (00:14→13:24)
[2024-06-24 00:20] LABS: Glucose Point of Care 110 mg/dl (65-105)
[2024-06-24] MEDS: chlordiazePOXIDE (*CRX) 25 MG CAPSULE 50 MG PO ×4 (01:25→20:50)
[2024-06-24 04:00] VITALS: PULSE 90
[2024-06-24 04:55] LABS: Basophils Absolute Auto 0.1 K/mm3 (0.0-0.1); Basophils Percent Auto 0.4 % (0.2-1.2); Eosinophils Absolute Auto 0.1 K/mm3 (0-0.3); Eosinophils Percent Auto 0.5 % (0-4.4); Hematocrit 40.7 % (42.0-52.0); Hemoglobin 13.6 g/dL (14.0-18.0); Immature Granulocyte Absolute 0.07 K/mm3 (0.00-0.031); Immature Granulocyte Percent A 0.4 % (0-0.5); Lymphocytes Absolute Auto 4.53 K/mm3 (0.9-3.2); Lymphocytes Percent Auto 23.6 % (18.3-44.2); Mean Corpuscular HGB Conc 33.4 g/dl (32-36); Mean Corpuscular Hemoglobin 27.8 pg (26-34); Mean Corpuscular Volume 83.1 fl (80-100); Mean Platelet Volume 8.6 fl (7.4-10.4); Monocytes Absolute Auto 1.6 K/mm3 (0.1-0.6); Monocytes Percent Auto 8.1 % (2.6-8.5); Neutrophils Absolute Auto 12.9 K/mm3 (1.3-6.7); Platelet Count Result 327 k/mm3 (150-375); Red Cell Distribution Width 16.5 % (11.5-14.5); White Blood Count 19.2 K/mm3 (4.5-10.0)
[2024-06-24 05:19] LABS: Alanine Aminotransferase 28 U/L (6-50); Albumin Level 4.2 g/dL (3.5-5.1); Alkaline Phosphatase 100 U/L (38-126); Anion Gap 9 mmol/L (4-12); Aspartate Amino Transferase 23 U/L (17-59); Bilirubin,Total 1.1 mg/dL (0.2-1.3); Blood Urea Nitrogen 10 mg/dL (9-20); Calcium 8.8 mg/dL (8.4-10.2); Carbon Dioxide 22 mmol/L (22-30); Chloride 105 mmol/L (98-107); Estimated CRCL calculation 115 ml/min; Estimated Glomerular Filt Rate > 60; Glucose 97 mg/dL (65-110); Magnesium 2.3 mg/dL (1.6-2.3); Phosphorus 2.6 mg/dL (2.5-4.5); Potassium 3.9 mmol/L (3.4-5.0); Sodium 136 mmol/L (137-145)
[2024-06-24] MEDS: ENOXAPARIN 40 MG/0.4 ML SYRINGE SUB-Q (07:55)
[2024-06-24] MEDS: FOLIC ACID 1 MG TABLET PO (07:57)
[2024-06-24] MEDS: lisinopriL 10 MG TABLET PO (07:57)
[2024-06-24] MEDS: THIAMINE HCL 200 MG/2 ML VIAL 100 MG IV PUSH (07:58)
[2024-06-24 08:00] VITALS: BP 143/89; PULSE 87; RESP 18; TEMP 36.7; O2SAT 93
--- NOTE | 2024-06-24 10:33 | PCFNICU ---
ICU Rounding Note: Pt current nutrition is DBCC. Last recorded weight is 89.3 kg. Bowel Motility: No BM reported. Labs Reviewed:Na 136, Hct 50.74, Hgb 13.6 Meds Noted:Librium, Thiamine, Folic Acid, Lovenox Skin: WNL Additional Notes: Patient is tolerating a DBCC diet. Oral Intake 50-75% of meals. No further nutritional interventions needed at this time. Following in ICU rounds.
--- NOTE | 2024-06-24 11:14 | P.PNIM_ITS ---
Progress Note: A&P Assessment and Plan (1) Intentional overdose: Qualifiers: Encounter type: initial encounter Qualified Code(s): T50.902A - Poisoning by unspecified drugs, medicaments and biological substances, intentional self-harm, initial encounter Code(s): T50.902A - Poisoning by unspecified drugs, medicaments and biological substances, intentional self-harm, initial encounter Status: Acute Assessment and Plan: -Intentionally took multiple medications as a suicide attempt including hydr oxyzine, trazodone, fluoxetine, and Benadryl around 2:00 p.m. Prescriptions brought to the bedside, see quantities and strengths below. Bottles are empty, however EMS reported there were some pills lying about upon their arrival. Hydroxyzine 50 mg x 60 tablets Trazodone 100 mg x 90 tablets Fluoxetine 40 mg x 180 tablets Benadryl 50 mg x 100 tablets -Poison control contacted in the ED: Trazodone, Hydroxyzine, Benadryl can cause profound drowsiness, peak 1-2 hours.? Currently arousable to voice and protecting airway. Prolonged monitoring for fluoxetine (up to 48 hours), peak metabolism at 8 hours (replace peak at 10:00 p.m. this evening). -Last ETOH use last night (06/21) -One-to-one sitter and observation.? -Suicide precautions ordered. -Will need psych evaluation once medically cleared. -Telemetry monitoring. (2) Alcohol use disorder: Code(s): F10.90 - Alcohol use, unspecified, uncomplicated Status: Acute Assessment and Plan: suspected daily ETOH use, 1 pint, since February. Patient difficult historian are present due to level of somnolence. last drink - 06/21, 1 pint of vodka CIWA protocol in place Ativan PRN Librium prn seizure precautions neurochecks Q2H Banana bag Continue thiamine and folic acid daily Reassess history once patient is improved (3) Bipolar disorder: Qualifiers: Active/Remission status: remission status unspecified Qualified Code(s): F31.9 - Bipolar disorder, unspecified Code(s): F31.9 - Bipolar disorder, unspecified Status: Chronic Assessment and Plan: Hold home medications: quetiapine, fluoxetine, hydroxyzine. Will need care coordination/crisis intervention once medically cleared. (4) HTN (hypertension): Qualifiers: Hypertension type: primary hypertension Qualified Code(s): I10 - Essential (primary) hypertension Code(s): I10 - Essential (primary) hypertension Status: Chronic Assessment and Plan: Chronic, currently 152/90. Continue home medication: Lisinopril 10 mg daily. Monitor. Subjective Date/time seen: 06/24/24 11:14 Interval history: Patient was asleep during my examination. As per nurse patient was hallucinating during the day. Started Seroquel 50 mg p.o. HS. Patient needs psychiatric evaluation. UDS was positive for cannabinoids during the admission. Ethanol level was was less than 10. No evidence of UTI. No evidence of infectious process although leukocytosis is present. Possibly reactive. Review of Systems Review of Systems: All systems reviewed & are unremarkable except as noted in HPI and below (Limited, altered) Exam Const: General: comfortable and no acute distress Other: , male, disheveled, ill-appearing HENMT: Face/Nose/Sinus: Normal nares present Mouth: Yes moist mucous membranes Eyes: General: appearance normal, both eyes and all related structures Sclera: sclerae normal Pupils: Equal, round and reactive pupils present EOM: EOMs intact bilaterally Resp: Effort & Inspection: normal respiratory effort Auscultation: clear to auscultation bilaterally Cardio: Rate: regular rate Rhythm: regular rhythm Other: S1-S2 present without murmur, rub, ectopy GI: Other: Abdomen soft, nondistended, nontender. Normoactive bowel sounds in all quadrants. Skin: General skin exam: normal color and no rashes or lesions noted Wounds: no wounds Other: Skin warm, mildly diaphoretic (primarily in the hands). Neuro: Cranial nerves: Yes Equal, round and reactive pupils present Other: Fine to moderate tremor in the bilateral hands. Appears to be having hallucinations (quick looking to the side, tracking things that are not present). Moving all extremities. Alert and orientated to self and year, unable to provide place or situational history of present. +somnolence. Extrem: General: normal to inspection Psych: Other: + suicidal thoughts - reported plan to f ind gun due to his attempted this morning and being unsuccessful. Appears to be interacting with visual hallucinations (i.e. Looking quickly off to the side and tracking with his eyes objects or people that are not present). Restless when awake, somnolent. Disheveled. Objective Data Vital Signs Vital Signs: Vital Signs - 24 hr 06/23/24 15:53 06/23/24 20:20 06/23/24 23:35 Temperature 98.1 F Pulse Rate 63 Pulse Rate [Bilateral Radial Palpation] Respiratory Rate 24 H Blood Pressure 149/84 H 150/96 H Pulse Oximetry 90 95 Oxygen Delivery Room Air Fraction of Inspired Oxygen 21 06/24/24 00:00 06/24/24 00:00 06/24/24 04:00 Temperature 98.1 F Pulse Rate 84 Pulse Rate [Bilateral Radial Palpation] 84 90 Respiratory Rate 16 Blood Pressure 112/83 Pulse Oximetry 97 Oxygen Delivery Fraction of Inspired Oxygen 06/24/24 08:00 06/24/24 08:00 Temperature 98.1 F Pulse Rate 87 87 Pulse Rate [Bilateral Radial Palpation] Respiratory Rate 18 18 Blood Pressure 143/89 H Pulse Oximetry 93 93 Oxygen Delivery Room Air Fraction of Inspired Oxygen 21 Intake/Output Intake/Output: Intake & Output 06/21/24 06/22/24 06/23/24 06/24/24 23:59 23:59 23:59 23:59 Intake Total 1530 650 Output Total 2050 900 Balance -520 -250 Meds/Results Medications: Active Medications Generic Name Dose Route Start Last Admin Trade Name Freq PRN Reason Stop Dose Admin Acetaminophen 500 mg 06/22/24 19:25 06/23/24 08:05 Acetaminophen 500 Mg Tablet PO 500 mg Q6H PRN Administration Mild Pain (1-3) or Fever Chlordiazepoxide HCl 50 mg 06/23/24 14:00 06/24/24 07:56 Chlordiazepoxide (*Crx) 25 Mg Capsule PO 50 mg Q6H DANIELA Administration Docusate Sodium 100 mg 06/22/24 19:25 Docusate Sodium 100 Mg Capsule PO Q12H PRN Constipation Enoxaparin Sodium 40 mg 06/23/24 09:00 06/24/24 07:55 Enoxaparin 40 Mg/0.4 Ml Syringe SUB-Q 40 mg DAILY DANIELA Administration Folic Acid 1 mg 06/23/24 09:00 06/24/24 07:57 Folic Acid 1 Mg Tablet PO 1 mg DAILY DANIELA Administration Hydralazine HCl 10 mg 06/23/24 10:11 Hydralazine Hcl 20 Mg/Ml Vial IV PUSH Q4H PRN Blood Pressure - High Lisinopril 10 mg 06/23/24 09:00 06/24/24 07:57 Lisinopril 10 Mg Tablet PO 10 mg DAILY DANIELA Administration Lorazepam 2 mg 06/22/24 20:20 06/24/24 08:53 Lorazepam Inj (*Crx) 2 Mg/Ml Vial IV PUSH 2 mg Q4H PRN Administration CIWA 8-15 Thiamine HCl 100 mg 06/23/24 09:00 06/24/24 07:58 Thiamine Hcl 200 Mg/2 Ml Vial IV PUSH 100 mg DAILY DANIELA Administration Labs Labs: Laboratory Results - last 24 hr 06/23/24 06/23/24 06/24/24 11:11 17:58 00:05 WBC RBC Hgb Hct MCV MCH MCHC RDW Plt Count MPV Immature Gran % (Auto) Neut % (Auto) Lymph % (Auto) [place] % (Auto) Eos % (Auto) Baso % (Auto) Lymph # (Auto) [place] # (Auto) Eos # (Auto) Baso # (Auto) Abs Immat Gran (auto) Absolute Neuts (auto) Absolute Nucleated RBC Nucleated RBC % Sodium Potassium Chloride Carbon Dioxide Anion Gap BUN Creatinine Estim Creat Clear Calc Estimated GFR Glucose POC Capillary Glucose 118 H 139 H 110 H Calcium Phosphorus Magnesium Total Bilirubin AST ALT Alkaline Phosphatase Total Protein Albumin 06/24/24 04:29 WBC 19.2 H RBC 4.90 Hgb 13.6 L Hct 40.7 L MCV 83.1 MCH 27.8 MCHC 33.4 RDW 16.5 H Plt Count 327 MPV 8.6 Immature Gran % (Auto) 0.4 Neut % (Auto) 67.0 Lymph % (Auto) 23.6 [place] % (Auto) 8.1 Eos % (Auto) 0.5 Baso % (Auto) 0.4 Lymph # (Auto) 4.53 H [place] # (Auto) 1.6 H Eos # (Auto) 0.1 Baso # (Auto) 0.1 Abs Immat Gran (auto) 0.07 H Absolute Neuts (auto) 12.9 H Absolute Nucleated RBC 0.000 Nucleated RBC % 0.0 Sodium 136 L Potassium 3.9 Chloride 105 Carbon Dioxide 22 Anion Gap 9 BUN 10 Creatinine 0.73 Estim Creat Clear Calc 115 Estimated GFR > 60 Glucose 97 POC Capillary Glucose Calcium 8.8 Phosphorus 2.6 Magnesium 2.3 Total Bilirubin 1.1 AST 23 ALT 28 Alkaline Phosphatase 100 Total Protein 7.0 Albumin 4.2 Quality VTE Prophylaxis VTE prophylaxis: pharmacologic ordered Hospitalist [facility] Advance Care Plan I have confirmed that the patient's Advanced Care Plan is present, code status is documented, or surrogate decision maker is listed in patient medical record.: Yes Medication Reconciliation I have utilized all available resources to obtain, update and review the patients current medications (includes all prescriptions, OTC, herbals, cannabis, and nutritional supplements).: Yes
[2024-06-24 11:15] LABS: Glucose Point of Care 94 mg/dl (65-105)
[2024-06-24 12:00] VITALS: BP 143/89; PULSE 90
[2024-06-24 16:00] VITALS: BP 117/74; BP 143/89; PULSE 77; PULSE 90; RESP 24; TEMP 36.8; O2SAT 94
[2024-06-24 17:13] LABS: Glucose Point of Care 96 mg/dl (65-105)
[2024-06-24 20:00] VITALS: PULSE 86; O2SAT 94
[2024-06-24] MEDS: QUEtiapine FUMARATE 25 MG TABLET 50 MG PO (20:49)
[2024-06-25] VITALS: BP 115/88; PULSE 68; RESP 18; TEMP 36.6; O2SAT 96
[2024-06-25] MEDS: LORazepam INJ (*CRX) 2 MG/ML VIAL IV PUSH (00:12)
[2024-06-25 00:17] LABS: Glucose Point of Care 112 mg/dl (65-105)
[2024-06-25 04:00] VITALS: PULSE 72
[2024-06-25 06:37] LABS: Glucose Point of Care 93 mg/dl (65-105)
[2024-06-25 07:43] LABS: Glucose Point of Care 93 mg/dl (65-105)
[2024-06-25 07:45] LABS: Hematocrit 45.6 % (42.0-52.0); Hemoglobin 14.8 g/dL (14.0-18.0); Mean Corpuscular HGB Conc 32.5 g/dl (32-36); Mean Corpuscular Hemoglobin 27.5 pg (26-34); Mean Corpuscular Volume 84.6 fl (80-100); Mean Platelet Volume 8.9 fl (7.4-10.4); Platelet Count Result 333 k/mm3 (150-375); Red Blood Count 5.39 M/mm3 (4.6-6.20); Red Cell Distribution Width 16.6 % (11.5-14.5); White Blood Count 15.2 K/mm3 (4.5-10.0)
[2024-06-25 07:57] LABS: Alanine Aminotransferase 26 U/L (6-50); Albumin Level 4.2 g/dL (3.5-5.1); Alkaline Phosphatase 101 U/L (38-126); Anion Gap 10 mmol/L (4-12); Aspartate Amino Transferase 24 U/L (17-59); Bilirubin,Total 0.7 mg/dL (0.2-1.3); Blood Urea Nitrogen 20 mg/dL (9-20); Carbon Dioxide 25 mmol/L (22-30); Chloride 104 mmol/L (98-107); Estimated CRCL calculation 93 ml/min; Estimated Glomerular Filt Rate > 60; Glucose 97 mg/dL (65-110); Potassium 3.8 mmol/L (3.4-5.0); Sodium 139 mmol/L (137-145)
[2024-06-25 08:00] VITALS: BP 119/78; PULSE 69; RESP 20; TEMP 36.7; O2SAT 93
[2024-06-25] MEDS: FOLIC ACID 1 MG TABLET PO (08:32)
[2024-06-25] MEDS: ENOXAPARIN 40 MG/0.4 ML SYRINGE SUB-Q (08:32)
[2024-06-25] MEDS: THIAMINE HCL 200 MG/2 ML VIAL 100 MG IV PUSH (08:32)
[2024-06-25] MEDS: chlordiazePOXIDE (*CRX) 25 MG CAPSULE 50 MG PO ×2 (08:32→19:55)
[2024-06-25] MEDS: lisinopriL 10 MG TABLET PO (08:32)
[2024-06-25 11:41] LABS: Glucose Point of Care 107 mg/dl (65-105)
[2024-06-25 12:00] VITALS: BP 118/75; PULSE 72; RESP 16; TEMP 36.9; O2SAT 95
--- NOTE | 2024-06-25 14:01 | P.PNIM_ITS ---
Progress Note: A&P Assessment and Plan (1) Intentional overdose: Qualifiers: Encounter type: initial encounter Qualified Code(s): T50.902A - Poisoning by unspecified drugs, medicaments and biological substances, intentional self-harm, initial encounter Code(s): T50.902A - Poisoning by unspecified drugs, medicaments and biological substances, intentional self-harm, initial encounter Status: Acute Assessment and Plan: -Intentionally took multiple medications as a suicide attempt including hydr oxyzine, trazodone, fluoxetine, and Benadryl around 2:00 p.m. Prescriptions brought to the bedside, see quantities and strengths below. Bottles are empty, however EMS reported there were some pills lying about upon their arrival. Hydroxyzine 50 mg x 60 tablets Trazodone 100 mg x 90 tablets Fluoxetine 40 mg x 180 tablets Benadryl 50 mg x 100 tablets -Poison control contacted in the ED: Trazodone, Hydroxyzine, Benadryl can cause profound drowsiness, peak 1-2 hours.? Currently arousable to voice and protecting airway. Prolonged monitoring for fluoxetine (up to 48 hours), peak metabolism at 8 hours (replace peak at 10:00 p.m. this evening). -Last ETOH use last night (06/21) -One-to-one sitter and observation.? -Suicide precautions ordered. -Currently medically cleared and need psych evaluation . -Telemetry monitoring. (2) Alcohol use disorder: Code(s): F10.90 - Alcohol use, unspecified, uncomplicated Status: Acute Assessment and Plan: suspected daily ETOH use, 1 pint, since February. Patient difficult historian are present due to level of somnolence. last drink - 06/21, 1 pint of vodka CIWA protocol in place Ativan PRN Librium prn seizure precautions neurochecks Q2H Banana bag Continue thiamine and folic acid daily Reassess history once patient is improved (3) Bipolar disorder: Qualifiers: Active/Remission status: remission status unspecified Qualified Code(s): F31.9 - Bipolar disorder, unspecified Code(s): F31.9 - Bipolar disorder, unspecified Status: Chronic Assessment and Plan: Hold home medications: quetiapine, fluoxetine, hydroxyzine. Will need care coordination/crisis intervention once medically cleared. (4) HTN (hypertension): Qualifiers: Hypertension type: primary hypertension Qualified Code(s): I10 - Essential (primary) hypertension Code(s): I10 - Essential (primary) hypertension Status: Chronic Assessment and Plan: Chronic, currently 152/90. Continue home medication: Lisinopril 10 mg daily. Monitor. (5) Leukocytosis: Code(s): D72.829 - Elevated white blood cell count, unspecified Status: Acute Assessment and Plan: likely reactive in nature remains afebrile no signs of infectious process Subjective Date/time seen: 06/25/24 14:01 Interval history: Patient was examined at the bedside. Patient denies any hallucination today. Patient also denies any suicidal ideation or homicidal ideation. As per nursing yesterday patient had visual hallucination. Patient reports that he was previously diagnosed with depression. Patient also has episodes of marcos. Patient is medically cleared and need psychiatric evaluation. Review of Systems Review of Systems: All systems reviewed & are unremarkable except as noted in HPI and below (Limited, altered) Exam Const: General: comfortable and no acute distress Other: , male, disheveled, ill-appearing HENMT: Face/Nose/Sinus: Normal nares present Mouth: Yes moist mucous membranes Eyes: General: appearance normal, both eyes and all related structures Sclera: sclerae normal Pupils: Equal, round and reactive pupils present EOM: EOMs intact bilaterally Resp: Effort & Inspection: normal respiratory effort Auscultation: clear to auscultation bilaterally Cardio: Rate: regular rate Rhythm: regular rhythm Other: S1-S2 present without murmur, rub, ectopy GI: Other: Abdomen soft, nondistended, nontender. Normoactive bowel sounds in all quadrants. Skin: General skin exam: normal color and no rashes or lesions noted Wounds: no wounds Other: Skin warm, mildly diaphoretic (primarily in the hands). Neuro: Cranial nerves: Yes Equal, round and reactive pupils present Other: Fine to moderate tremor in the bilateral hands. Appears to be having hallucinations (quick looking to the side, tracking things that are not present). Moving all extremities. Alert and orientated to self and year, unable to provide place or situational history of present. +somnolence. Extrem: General: normal to inspection Psych: Other: + suicidal thoughts - reported plan to f ind gun due to his attempted this morning and being unsuccessful. Appears to be interacting with visual hallucinations (i.e. Looking quickly off to the side and tracking with his eyes objects or people that are not present). Restless when awake, somnolent. Disheveled. Objective Data Vital Signs Vital Signs: Vital Signs - 24 hr 06/24/24 16:00 06/24/24 16:00 06/24/24 20:00 Temperature 98.2 F Pulse Rate 77 Pulse Rate [Bilateral Radial Palpation] 90 86 Respiratory Rate 24 H Blood Pressure 143/89 H 117/74 Pulse Oximetry 94 Oxygen Delivery Fraction of Inspired Oxygen 06/24/24 20:00 06/25/24 00:00 06/25/24 00:00 Temperature 97.8 F Pulse Rate 68 Pulse Rate [Bilateral Radial Palpation] 68 Respiratory Rate 18 Blood Pressure 115/88 Pulse Oximetry 94 96 Oxygen Delivery Room Air Fraction of Inspired Oxygen 06/25/24 04:00 06/25/24 08:00 06/25/24 08:00 Temperature 98.0 F Pulse Rate 69 69 Pulse Rate [Bilateral Radial Palpation] 72 Respiratory Rate 20 20 Blood Pressure 119/78 Pulse Oximetry 93 93 Oxygen Delivery Room Air Fraction of Inspired Oxygen 21 06/25/24 12:00 06/25/24 12:00 Temperature 98.4 F Pulse Rate 72 Pulse Rate [Bilateral Radial Palpation] 72 Respiratory Rate 16 Blood Pressure 118/75 118/75 Pulse Oximetry 95 Oxygen Delivery Fraction of Inspired Oxygen Intake/Output Intake/Output: Intake & Output 06/22/24 06/23/24 06/24/24 06/25/24 23:59 23:59 23:59 23:59 Intake Total 1530 1128 220 Output Total 2050 1600 400 Balance -520 -562 -224 Meds/Results Medications: Active Medications Generic Name Dose Route Start Last Admin Trade Name Freq PRN Reason Stop Dose Admin Acetaminophen 500 mg 06/22/24 19:25 06/23/24 08:05 Acetaminophen 500 Mg Tablet PO 500 mg Q6H PRN Administration Mild Pain (1-3) or Fever Chlordiazepoxide HCl 50 mg 06/23/24 14:00 06/25/24 08:32 Chlordiazepoxide (*Crx) 25 Mg Capsule PO 50 mg Q6H DANIELA Administration Docusate Sodium 100 mg 06/22/24 19:25 Docusate Sodium 100 Mg Capsule PO Q12H PRN Constipation Enoxaparin Sodium 40 mg 06/23/24 09:00 06/25/24 08:32 Enoxaparin 40 Mg/0.4 Ml Syringe SUB-Q 40 mg DAILY DANIELA Administration Folic Acid 1 mg 06/23/24 09:00 06/25/24 08:32 Folic Acid 1 Mg Tablet PO 1 mg DAILY DANIELA Administration Hydralazine HCl 10 mg 06/23/24 10:11 Hydralazine Hcl 20 Mg/Ml Vial IV PUSH Q4H PRN Blood Pressure - High Lisinopril 10 mg 06/23/24 09:00 06/25/24 08:32 Lisinopril 10 Mg Tablet PO 10 mg DAILY DANIELA Administration Lorazepam 2 mg 06/22/24 20:20 06/25/24 00:12 Lorazepam Inj (*Crx) 2 Mg/Ml Vial IV PUSH 2 mg Q4H PRN Administration CIWA 8-15 Quetiapine Fumarate 50 mg 06/24/24 21:00 06/24/24 20:49 Quetiapine Fumarate 25 Mg Tablet PO 50 mg HS DANIELA Administration Thiamine HCl 100 mg 06/23/24 09:00 06/25/24 08:32 Thiamine Hcl 200 Mg/2 Ml Vial IV PUSH 100 mg DAILY DANIELA Administration Labs Labs: Laboratory Results - last 24 hr 06/24/24 06/25/24 06/25/24 17:11 00:15 06:13 WBC RBC Hgb Hct MCV MCH MCHC RDW Plt Count MPV Sodium Potassium Chloride Carbon Dioxide Anion Gap BUN Creatinine Estim Creat Clear Calc Estimated GFR Glucose POC Capillary Glucose 96 112 H 93 Calcium Total Bilirubin AST ALT Alkaline Phosphatase Total Protein Albumin 06/25/24 06/25/24 06/25/24 07:35 07:41 11:28 WBC 15.2 H RBC 5.39 Hgb 14.8 Hct 45.6 MCV 84.6 MCH 27.5 MCHC 32.5 RDW 16.6 H Plt Count 333 MPV 8.9 Sodium 139 Potassium 3.8 Chloride 104 Carbon Dioxide 25 Anion Gap 10 BUN 20 D Creatinine 0.92 Estim Creat Clear Calc 93 Estimated GFR > 60 Glucose 97 POC Capillary Glucose 93 107 H Calcium 9.0 Total Bilirubin 0.7 AST 24 ALT 26 Alkaline Phosphatase 101 Total Protein 7.0 Albumin 4.2 Quality VTE Prophylaxis VTE prophylaxis: pharmacologic ordered Hospitalist [facility] Advance Care Plan I have confirmed that the patient's Advanced Care Plan is present, code status is documented, or surrogate decision maker is listed in patient medical record.: Yes Medication Reconciliation I have utilized all available resources to obtain, update and review the patients current medications (includes all prescriptions, OTC, herbals, cannabis, and nutritional supplements).: Yes
--- NOTE | 2024-06-25 15:25 | PC.NURSE ---
This RN spoke with Roman at Poison Control and per Roman, the patient is medically cleared and can follow up with mental health at this time.
[2024-06-25 16:00] VITALS: BP 118/75; PULSE 72
--- NOTE | 2024-06-25 17:04 | PM.DS ---
DS: Admitting Diagnosis Discharge Date 06/25/2024 Admitting Diagnosis Ingestion/Overdose, Suicide Attempt DS: Discharge Diagnosis Discharge Diagnosis (1) Intentional overdose: Qualifiers: Encounter type: initial encounter Qualified Code(s): T50.902A - Poisoning by unspecified drugs, medicaments and biological substances, intentional self-harm, initial encounter Code(s): T50.902A - Poisoning by unspecified drugs, medicaments and biological substances, intentional self-harm, initial encounter Status: Acute Assessment and Plan: -Intentionally took multiple medications as a suicide attempt including hydroxyzine, trazodone, fluoxetine, and Benadryl around 2:00 p.m. Prescriptions brought to the bedside, see quantities and strengths below. Bottles are empty, however EMS reported there were some pills lying about upon their arrival. Hydroxyzine 50 mg x 60 tablets Trazodone 100 mg x 90 tablets Fluoxetine 40 mg x 180 tablets Benadryl 50 mg x 100 tablets -Poison control contacted in the ED: Trazodone, Hydroxyzine, Benadryl can cause profound drowsiness, peak 1-2 hours.? Currently arousable to voice and protecting airway. Prolonged monitoring for fluoxetine (up to 48 hours), peak metabolism at 8 hours (replace peak at 10:00 p.m. this evening). -Last ETOH use last night (06/21) -One-to-one sitter and observation.? -Suicide precautions ordered. -Currently medically cleared and need psych evaluation . -Telemetry monitoring. (2) Alcohol use disorder: Code(s): F10.90 - Alcohol use, unspecified, uncomplicated Status: Acute Assessment and Plan: suspected daily ETOH use, 1 pint, since February. Patient difficult historian are present due to level of somnolence. last drink - 06/21, 1 pint of vodka CIWA protocol in place Ativan PRN Librium prn seizure precautions neurochecks Q2H Banana bag Continue thiamine and folic acid daily Reassess history once patient is improved (3) Bipolar disorder: Qualifiers: Active/Remission status: remission status unspecified Qualified Code(s): F31.9 - Bipolar disorder, unspecified Code(s): F31.9 - Bipolar disorder, unspecified Status: Chronic Assessment and Plan: Hold home medications: quetiapine, fluoxetine, hydroxyzine. Will need care coordination/crisis intervention once medically cleared. (4) HTN (hypertension): Qualifiers: Hypertension type: primary hypertension Qualified Code(s): I10 - Essential (primary) hypertension Code(s): I10 - Essential (primary) hypertension Status: Chronic Assessment and Plan: Chronic, currently 152/90. Continue home medication: Lisinopril 10 mg daily. Monitor. (5) Leukocytosis: Code(s): D72.829 - Elevated white blood cell count, unspecified Status: Acute Assessment and Plan: likely reactive in nature remains afebrile no signs of infectious process DS: Summary Hospital Course Hospital Course: 48 y/o M with PMH of chronic depression, HTN, GERD, and bipolar disorder presents here with overdose. The patient [place] here [place] a local hotel via EMS for further evaluation after a suicide attempt via ingestion.? The patient reports he took multiple medications in an attempt to harm himself today. He reports taking multiple Trazodone, Fluoxetine, Hydroxyzine, and Benadryl.? He reports he took these medications around 2:00 p.m. Post ingestion he had 1 episode of nausea and vomiting, small in volume, while in route with EMS.? The patient arrived somnolent but easily arousable.? He reports he is still having suicidal ideation, now has plan to utilize a gun.? He reports +/- access to a firearm, reported to the ED provider that he did not have one but that he could get access.? He reports the event was precipitated by his girlfriend's child coming into town. Did not elaborate further. He denies any previous attempts. The patient currently lives with his girlfriend, does not currently work. Reports Arcenio LILLY, pain management, prescribes his medication. Of note, the patient also reported ETOH use last night - 1 pint of Vodka. He reports he has been doing well, however started drinking heavily in February after his brother passed. The patient is currently a poor historian due to level of somnolence and mentation. Initial VS at presentation: 98.7? F, HR 92, RR 20, 127/90, and 95% on RA. ED workup showed: WBC 17.3, hemoglobin 13.4, no significant electrolyte derangements, creatinine 0.71 and GFR >60, glucose 138, UA negative, salicylates and acetaminophen negative, UDS positive for cannabis, ethanol negative. COVID negative. EKG showed sinus rhythm, delayed precordial R/S transition, nonspecific ST and T-wave abnormality inferior/lateral leads. 06/25:Patient was examined at the bedside. Patient denies any hallucination today. Patient also denies any suicidal ideation or homicidal ideation. As per nursing yesterday patient had visual hallucination. Patient reports that he was previously diagnosed with depression. Patient also has episodes of marcos. Patient is medically cleared and need psychiatric evaluation. Status at Discharge Cognitive/behavioral status at discharge: Stable Time Spent with Patient Time attestation: Total time spent providing and/or coordinating discharge services:45 minutes Exam Const: General: comfortable and no acute distress Other: , male, disheveled, ill-appearing HENMT: Face/Nose/Sinus: Normal nares present Mouth: Yes moist mucous membranes Eyes: General: appearance normal, both eyes and all related structures Sclera: sclerae normal Pupils: Equal, round and reactive pupils present EOM: EOMs intact bilaterally Resp: Effort & Inspection: normal respiratory effort Auscultation: clear to auscultation bilaterally Cardio: Rate: regular rate Rhythm: regular rhythm Other: S1-S2 present without murmur, rub, ectopy GI: Other: Abdomen soft, nondistended, nontender. Normoactive bowel sounds in all quadrants. Skin: General skin exam: normal color and no rashes or lesions noted Wounds: no wounds Other: Skin warm, mildly diaphoretic (primarily in the hands). Neuro: Cranial nerves: Yes Equal, round and reactive pupils present Other: Fine to moderate tremor in the bilateral hands. Appears to be having hallucinations (quick looking to the side, tracking things that are not present). Moving all extremities. Alert and orientated to self and year, unable to provide place or situational history of present. +somnolence. Extrem: General: normal to inspection Psych: Other: + suicidal thoughts - reported plan to find gun due to his attempted this morning and being unsuccessful. Appears to be interacting with visual hallucinations (i.e. Looking quickly off to the side and tracking with his eyes objects or people that are not present). Restless when awake, somnolent. Disheveled. DS: Data Data Completed and Pending Labs on day of discharge: Labs from last 24 hours 06/25/24 06/25/24 06/25/24 11:28 07:41 07:35 WBC 15.2 H RBC 5.39 Hgb 14.8 Hct 45.6 MCV 84.6 MCH 27.5 MCHC 32.5 RDW 16.6 H Plt Count 333 MPV 8.9 Sodium 139 Potassium 3.8 Chloride 104 Carbon Dioxide 25 Anion Gap 10 BUN 20 D Creatinine 0.92 Estim Creat Clear Calc 93 Estimated GFR > 60 Glucose 97 POC Capillary Glucose 107 H 93 Calcium 9.0 Total Bilirubin 0.7 AST 24 ALT 26 Alkaline Phosphatase 101 Total Protein 7.0 Albumin 4.2 06/25/24 06/25/24 06/24/24 06:13 00:15 17:11 WBC RBC Hgb Hct MCV MCH MCHC RDW Plt Count MPV Sodium Potassium Chloride Carbon Dioxide Anion Gap BUN Creatinine Estim Creat Clear Calc Estimated GFR Glucose POC Capillary Glucose 93 112 H 96 Calcium Total Bilirubin AST ALT Alkaline Phosphatase Total Protein Albumin Discharge Plan Discharge Attending physician on discharge: Charli Agosto Consulting providers: Lucien Poe Discharging Clinician: Charli Agosto Anticipated Discharge Date/Time: 06/25/24 16:58 Patient Disposition: Other Activity: as tolerated Diet: as tolerated Discharge Instructions: Patient needs to see Psychiatrist and follow up closely Need to discuss with Psychiatrist in regards to his medication reconciliation Patient was admitted due to suicidal attempt with medication overdose. Patient needs to see Psychiatry before continuing all the medication. Patient Instructions: Antibiotic Form, Enoxaparin (By injection) Patient Language: [place]an Stand Alone Forms: General Discharge Information Follow-up/Referrals: Jani,Preet Chairez MD [Primary Care Provider] - (Patient was admitted due to suicidal attempt with medication overdose. Patient needs to see Psychiatry before continuing all the medication.) Discharge Medications: Continued lisinopril 10 mg tablet 10 mg PO DAILY Held fluoxetine 40 mg capsule 40 mg PO QPM Hold Instructions: Resume on 06/29/24. Patient was admitted due to suicidal attempt with medication overdose. Patient needs to see Psychiatry before continuing all the medication. hydroxyzine pamoate 50 mg capsule 50 mg PO Q6H PRN (Reason: agitation) Hold Instructions: Resume on 06/29/24. Patient was admitted due to suicidal attempt with medication overdose. Patient needs to see Psychiatry before continuing all the medication. quetiapine 100 mg tablet 200 mg PO HS Hold Instructions: Resume on 06/29/24. Patient was admitted due to suicidal attempt with medication overdose. Patient needs to see Psychiatry before continuing all the medication. Date of admission: 06/22/24 18:17 Primary Care Provider: Jani,Preet Chairez Admitting Provider: Omer Camarena Attending physician on admission: Omer Camarena Condition: Guarded Prognosis
--- NOTE | 2024-06-25 20:30 | PC.NURSE ---
2024 patient wallet handed to patient from ICU safe.
== END 2024-06-25 20:26 | disposition home or self-care (01) | DRG 817 ==
LOC: ANHED 15:38 → ANHICU 18:33
PROVIDERS: Internal Medicine; Student in an Organized Health Care Education/Training Program; Admitting Provider Internal Medicine; Emergency Provider Student in an Organized Health Care Education/Training Program; PCP Family Medicine; Visit Provider General Practice
DX: T43.592A Poisoning by other antipsychotics and neuroleptics, intentional self-harm, initial encounter (principal); T43.212A Poisoning by selective serotonin and norepinephrine reuptake inhibitors, intentional self-harm, initial encounter; T43.222A Poisoning by selective serotonin reuptake inhibitors, intentional self-harm, initial encounter; T45.0X2A Poisoning by antiallergic and antiemetic drugs, intentional self-harm, initial encounter; F31.9 Bipolar disorder, unspecified; F10.90 Alcohol use, unspecified, uncomplicated; I10 Essential (primary) hypertension; D72.829 Elevated white blood cell count, unspecified; K21.9 Gastro-esophageal reflux disease without esophagitis
CPT/HCPCS: 36415; 80048; 80053; 80143; 80179; 80307; 81003; 82077; 82550; 82948; 83735; 84100; 84443; 85025; 85027; 87635; 93005; 99285; A9270; J1650; J2060; J3411; J3475; J7030; J7120